=== PATIENT | female | born 1980 | race Hispanic/Latino ===

== ENCOUNTER 2021-10-27 08:39 | Observation (INO) | payer OTHER ==
--- OUTSIDE RECORDS SUMMARY | 2021-10-27 08:44 | XMS REPORT | Continuity of Care Document ---
:1980 Author Organization [facility] t Address [address] [place] [address] Care Team Providers Name Role Phone Jhon Mar Attending Clinician Unavailable Geovani Patel Attending Clinician Unavailable Jessica Attending Clinician Unavailable Marycarmen Saul Attending Clinician Unavailable Julianna Goss Admitting Clinician Unavailable Juan Manuel Admitting Clinician Unavailable Jessica Admitting Clinician Unavailable Payers Payer Name Policy Type Policy Number Effective Date Expiration Date S ource Problems Condition Condition Condition Status Onset Resolution Last Treating Co mments Source Name Details Category Date Date Treatment Clinician Date Overactive Overactive Problem Active [facility] bladder bladder [facility] Fibromyalg Fibromyalg Problem Active [facility] ia ia [facility] Therapeuti Therapeuti Problem Active [facility] c drug c drug [facility] - monitoring monitoring Me moria l [facility] Seizure Seizure Problem Active [facility] disorder disorder [facility] History of History of Problem Active [facility] Helicobact Helicobact Page kes - er pylori er pylori Darron lucy infection infection l [facility] Gastroesop Gastroesop Problem Active [facility] hageal hageal [facility] - reflux reflux Memoria disease, disease, l esophagiti esophagiti Ou tpati s presence s presence en t not not Clinics specified specified Irritable Irritable Problem Active [facility] bowel bowel [facility] - syndrome syndrome Memori a with with l constipati constipati Ou tpati on on ent Clinics Gastropare Gastropare Problem Active [facility] sis sis [facility] Hyperlipid Hyperlipid Problem Active [facility] emia emia [facility] Seizures Seizures Problem Active [facility] Chest Chest Problem Active [facility] pain, pain, [facility] - unspecifie unspecifie Me moria d type d type l [facility] IBS IBS Problem Active [facility] (irritable (irritable Page kes - bowel bowel Memoria syndrome) syndrome) [facility] PTSD PTSD Problem Active [facility] (post-trau (post-trau Page kes - matic matic Memoria stress stress l disorder) disorder) Out ati ent Clinics Bipolar Bipolar Problem Active [facility] disorder disorder [facility] COPD COPD Problem Active [facility] (chronic (chronic [facility] - obstructiv obstructiv Me moria e e l pulmonary pulmonary Outp ati disease) disease) ent Clinics Anxiety Anxiety Problem Active [facility] Insomnia, Insomnia, Problem Active [facility] unspecifie unspecifie Page kes - d type d type Memoria l [facility] Depression Depression Problem Active [facility] Swelling Swelling Problem Active [facility] Chronic Chronic Problem Active [facility] pain pain [facility] - syndrome syndrome Memori a l [facility] Depression Depression Problem Active [facility] with with [facility] - anxiety anxiety Memoria l [facility] Memory Memory Problem Active [facility] problem problem [facility] Abnormal Abnormal Problem Active [facility] t thyroid thyroid [facility] - blood test blood test Me moria l [facility] Hair loss Hair loss Problem [facility] Allergies, Adverse Reactions, Alerts Allergy Allergy Status Severity Reaction(s) Onset Inactive Treating Comm ents Source Name Type Date Date Clinician metoclop DA Active U [place] 2020-09 [facility] ramide 09-19 Corpus 00:00: Tory 00 [facility] tazobact DA Active SV DIFFICULTY 2020-09 [facility] am BREATHING 09-19:00: Tory[address] piperaci DA Active SV DIFFICULTY 2020-09 [facility] llin BREATHING 09-19 Corpus 00:00: Tory [facility] prometha DA Active U [facility] zine HCl - Clear 00:00: Balderas 00 [facility] prometha DA Active U INCREASED [facility] zine HCl NAUSEA 10-02 Clear 00:00: Balderas [facility] prometha DA Active U [facility] zine HCl 05-30 Corpus 00:00: [address] prometha DA Active U INCREASED [facility] zine HCl NAUSEA 05-30 Corpus 00:00: [address] Phenerga Adverse Active Info Not [facility] Reaction Available [facility] Medications Ordered Filled Start Stop Current Ordering Indication Dosage Frequency Signature Comments Components Source Medication Medication Date Date Medication? Clinician (SIG) Name Name Trazodone Trazodone Yes Gloria [address] HCl HCl [facility] Atorvastati Atorvastati Yes Gloria [address] [facility] n Calcium n Calcium Millender [facility] Fenofibrate Fenofibrate Yes Gloria [address] Millender with food [facility] Oxcarbazepi Oxcarbazepi Yes Gloria [address] [facility] [facility] ne ne Millender [facility] Procedures Procedure Date / Time Performed Performing Clinician [facility] ashia [id number] 2021-07-20 00:00:00 [email or web address] [facility] Encounters Start End Encounter Admission Attending Care Care Encounter Source Date/Time Date/Time Type Type Clinicians Facility Department ID 2020-10-05 Inpatient Kim Mar [facility] [id number] [facility] 12:30:00 [id number] [facility] 2020-10-02 Inpatient Isabela, Kim [facility] [id number] [facility] 10:00:00 [id number] [facility] 2021-10-03 2021-10-03 Emergency EM Jorge [facility] ER [id number] [facility] 13:14:00 18:45:00 Estefany [id number] [facility] 2021-10-03 2021-10-03 Emergency EM Jorge[facility] [id number] [facility] 13:14:00 13:14:00 Estefany 25 [facility] 2021-07-20 2021-07-22 Inpatient EM Hassanin[facility] TEL [id number] [facility] 11:40:00 16:00:00 Salsabeal [id number] [facility] 2021-07-20 2021-07-22 Inpatient EM Hassanin, [facility] TEL [id number] [facility] 11:40:00 16:00:00 Salsabeal 66 [facility] 2021-03-24 2021-03-24 Emergency EM Gk, [facility] ER [id number] [facility] 06:20:00 11:56:00 [place]os[place]den [id number] [facility] 2020-10-02 2020-10-02 Outpatient Matthew Marica [facility] LABO DO5 [id number] [facility] 20:38:00 20:38:00 [id number] [facility] 2018-12-15 2018-12-15 [facility] [id number] [facility] 21:22:00 21:22:00 [facility] Outpati [facility] Clinics 2018-12-15 2018-12-15 [facility] [id number] 10:00:00 10:00:00 [facility] Outpat[facility] Clinics 2018-11-18 2018-11-18 [facility] [id number] [address] 14:53:00 14:53:00 [facility] Medicine Medicine Outpati ent Clinics 2018-11-17 2018-11-17 [facility] [id number] 10:46:00 10:46:00 [facility] Medicine Medicine Outpati ent Clinics 2018-11-17 2018-11-17 [facility] [id number] 10:00:00 10:00:00 [facility] Medicine Outpati [facility] Clinics 2018-11-04 2018-11-04 Outpatient Holly Barrerat [id number] 16:26:00 16:26:00 [facility] ent [facility] 2018-11-02 2018-11-02 Outpatient Holly Barrerat [id number] 00:56:00 00:56:00 [facility] 2018-10-20 2018-10-20 Outpatient Holly Barrerat [id number] 09:15:00 09:15:00 [facility] Results Test Description Test Time Test Comments Results Result Comments Source LACTIC ACID 2021-10-03 18:21:00 Test Item Value Reference Range Interpretation Comme nts LACTIC ACID (test code = LACT) 1.2 MMOL/L 0.5-2.2 N UA RFLX MICROSCOPIC [id number] 17:09:00 Test Item Value Reference Range Interpretation Comments UA COLOR (test code = COLU) Yellow YELLOW UA APPEARANCE (test code = CLEAR CLEAR APPU) UA GLUCOSE DIPSTICK (test NORMAL mg/dL NEGATIVE code = DGLUU) UA BILIRUBIN DIPSTICK (test NEGATIVE NEGATIVE code = BILU) UA KETONE DIPSTICK (test NEGATIVE mg/dL NEGATIVE code = KETU) UA SPECIFIC GRAVITY (test > 1.050 1.001-1.035 H code = SGU) UA BLOOD DIPSTICK (test code NEGATIVE NEGATIVE = DARLENE) UA PH DIPSTICK (test code = 6.5 5.5-7.0 N POPEYE) UA PROTEIN DIPSTICK (test 20 mg/dL NEGATIVE code = PROU) UA UROBILINOGEN DIPSTICK NORMAL mg/dL NORMAL (test code = URO) UA NITRITE DIPSTICK (test NEGATIVE NEGATIVE code = OLENA) UA LEUKOCYTE ESTERASE NEGATIVE NEGATIVE DIPSTICK (test code = LEUU) UA COMMENT (test code = VOLUME 10-12 ML COMU) URINE SPECIMEN DESCRIPTION Clean Catch (test code = UASPEC) UA WBC (test code = WBCU) < 10 #/HPF 0-10 UA SQUAMOUS CELLS (test code > 100 #/LPF <100 A = SQU) UA CULTURE NEEDED? (test Criteria not met code = UACULT) Indication for culture: RiskForSepsis-no oth srcURINE SOURCE: Clean Catch LACTIC [id number] 17:06:00 Test Item Value Reference Range Interpretation Comments LACTIC ACID (test code = LACT) 3.3 MMOL/L 0.5-2.2 H UA [id number] 16:58:00 Test Item Value Reference Range Interpretation Comments UA RBC (test code = RBCU) #/hpf NONE SEEN Indication for culture: RiskForSepsis-no oth srcURINE SOURCE: Clean Catch DRUG OF ABUSE SCREEN [id number] 16:38:00 Test Item Value Reference Interpretation Comments Range UR COCAINE (test NEGATIVE NEGATIVE code = COCAU) UR MDMA (test code = POSITIVE NEGATIVE A If conf irmatory testing MDMAQLU) required, conta ct laboratory. UR CANNABINOIDS POSITIVE NEGATIVE A If confirmat ory testing (test code = CANU) required, contact laboratory. UR AMPHETAMINE (test NEGATIVE NEGATIVE code = AMPHU) UR BARBITURATE QUAL NEGATIVE NEGATIVE (test code = BARBQLU) UR BENZODIAZEPINE POSITIVE NEGATIVE A If confirm atory testing (test code = BENZU) required , contact laboratory. UR OPIATES QUAL NEGATIVE NEGATIVE (test code = OPIAQLU) UR PHENCYCLIDINE NEGATIVE NEGATIVE Urine Drug Abuse Screen (PCP) (test code = provides preliminary PHENCU) results thatmay be confirmed by naresh alcala methods (i.e., GC/MS) at [facility]. Results of scre en may not be usedin crimi nal justice, job performance or professionalcre dential review, or infa nt custody issues. Negativ e [place] Level ng/ml ------- ----- Cocaine 300 Methamp hetamine (Ecstacy) 500 Cannabinoids (THC) 50 Amphetamine 1000 Barbiturate s 200 Benzodia zepines 200 Opiat es 300 Ph encyclidine (PCP) 25 UR HCG [id number] 16:33:00 Test Item Value Reference Range Interpretation Comments UR HCG QUAL (test NEGATIVE NEGATIVE False nega tives may occur code = HCGQLU) when levels o f hCGare below 20 mIU/ml. When is still suspec janae, a new specimenshould be obtained after 48 hours and re-tested.If wa iting 48 hours is not me dically advisable,the t est result should be confi rmed using aquantitative h CG assay. Coronavirus 2019 nCoV [id number] 15:56:00 Test Item Value Reference Range Interpretation Comments Coronavirus 2019 Negative Negative ID NOW COVI D-19 assay nCoV Bedside (test performed on the ID NOW code = [id number]) Instrum ent devang rapid molecular in vi tro diagnostic test utilizing anisothermal nu cleic acid amplification t echnology intendedfor the qualitative det ection of nucleic acid fr om [id number] v iral RNA in direct nasal , nasopharyngeal orthroat swabs and nasal , nasopharyngeal or throat swabseluted in viral transport media from individuals who aresuspected of COVID-19 by their health care provider. Negat hilda results should be treated as presumptive and, ifinconsistent with clinical signs and symptoms or nec essaryfor patient managem ent, should be teste d with differentauthor ized or cleared molecul ar tests. Negative result s donot preclude SARS-C oV-2 infection and s hould not be used asthe s ole basis for patient man agement decisions. Negativeresults should be considered in t he context of a patient'sr ecent exposures, hist ory and presence of cli nical signs andsympto ms consistent with COVID-19.Result s are for the identificat ion of SARS-CoV-2 RNA. For Use Under an Emerge ncy Use Authorization ( EUA) Only Negative result s do not preclude SARS-C oV-2 infection andsh ould not be used as the sole basis for patient managementdecis ions. Negative result s must be combined with clinicalobserva tions, patient history , and epidemiological informatio n. - XR CHEST 1 [id number] 15:14:00 [facility] 1980 Sex: F Patient Name: CARO BLOUNT Unit No: [id number] EXAMS: CPT CODE: [id number] XR CHEST 1 V [id number] Reason: cough Location of dictation: H14 Portable chest one view. HISTORY: cough COMMENT: Compared to 07/20/2021. The heart and mediastinum appear normal. There is improved aeration of the lungs with no new consolidation, pneumothorax or effusion. Visualized soft tissues and skeletal structures are unremarkable. IMPRESSION: Resolved pneumonia with no acute findings in the chest. at 1514 Reported and signed by: Tish Garcia MD CC: Estefany Pastor; Kurt Zambrano MD; Estefany Patel MD Technologist: RT Jesus Trscrpt Dt/ (1514)t.[email or web address].[email or web address] Orig Print D/T: S: 10/03/2021 (1517) [facility] [place]: CARO BLOUNT [address] PHYS: Estefany Hanley MD [facility] [address] : 1980 AGE: 41 SEX: F LOC: JUNIOR PHONE #: [phone] EXAM DATE: 10/03/2021 STATUS: REG ER FAX #: RAD NO: DC Dt: PAGE 1 Signed Report- CT ABD PELVIS [id number] 15:12:00 [facility] 1980 Sex: F Patient Name: CARO BLOUNT Unit No: [id number] EXAMS: CPT CODE: [id number] CT ABD PELVIS W/CONT [id number] Reason: ABD PAIN CT abdomen and pelvis with contrast 10/03/2021 CLINICAL INDICATION: Abdominal pain COMPARISON: None available LOCATION: W1 TECHNIQUE: Helical CT axial imaging of the abdomen and pelvis was performed following the administration of intravenous contrast. Coronal and sagittal ref ormatted images were obtained. One or more of the following dose reduction techniques were used: Automated exposure control, adjustment of the mA and/or kV according to patient size, and/or utilization of iterative reconstruction technique. FINDINGS: Lowerthorax: Unremarkable. Hepatobiliary: Unremarkable. Gallbladder: Surgically absent.Spleen: Unremarkable. Pancreas: Unremarkable. Kidneys: Unremarkable. Adrenals: Unremarkable. Lymph nodes: Unremarkable. Vessels: Unremarkable. Peritoneum/retroperitoneum: Unremarkable. Pelvic organs/bladder: Absent uterus. Bowel: No focal wall thickeningor evidence for obstruction. Nondilated appendix. Bones/soft tissues: Unremarkable. IMPRESSION: No acute-appearing imaging abnormality. at 1512 Reported and signed by: Michael Mulligan MD CC: Estefany Pastor; Kurt Zambrano MD; Estefany Patel MD Technologist: Yahir GARRETT NM Trscrpt Dt/ (151)t.[email or web address] Orig Print D/T: S: 10/03/2021 (1515) CTDI: DLP: [facility] NAME: CARO BLOUNT [address] PHYS:Estefany Hanley MD [facility] [address] : 1980 AGE: 41 SEX: F LOC: MarinoSHORTY PHONE #: [phone] EXAM DATE: 10/03/2021 STATUS: REG ER FAX #: RAD NO: DC Dt: PAGE 1 Signed ReportBASI METABOLIC [id number] 14:26:00 Test Item Value Reference Range Interpretation Comments SODIUM (test code = 131 MMOL/L 133-145 L NA) POTASSIUM (test code = 4.8 MMOL/L 3.6-5.2 N K) CHLORIDE (test code = 96 MMOL/L 100-108 L CL) CARBON DIOXIDE (test 19 MMOL/L 22-32 L code = CO2) GLUCOSE (test code = 145 MG/DL 65-99 H Results of this assay GLU) method may be f alsely depressed orele vated if patient is t aking sulfasalazine. BLOOD UREA NITROGEN 12 MG/DL 6-20 N (test code = BUN) GLOMERULAR FILTRATION 64 58-135 N Report ing units: RATE (test code = GFR) mL/mi n/1.73m\\S\\2 (Modified MDRD Formula) CREATININE (test code 0.96 MG/DL 0.60-1.00 N = CREAT) CALCIUM (test code = 10.2 MG/DL 8.7-10.5 N CA) HEPATIC FUNCTION [id number] 14:26:00 Test Item Value Reference Range Interpretation Comments TOTAL PROTEIN (test 8.5 G/DL 6.4-8.2 H code = PROT) ALBUMIN (test code = 4.8 G/DL 3.4-5.0 N ALB) GLOBULIN (test code = 3.7 G/DL 1.5-3.8 N GLOB) ALBUMIN/GLOBULIN RATIO 1.3 1.1-2.2 N (test code = A/G) BILIRUBIN TOTAL (test 0.4 MG/DL 0.0-1.0 N code = BILT) BILIRUBIN DIRECT (test 0.1 MG/DL 0.0-0.3 N code = BILD) BILIRUBIN INDIRECT 0.3 MG/DL 0.0-0.7 N (test code = BILIND) SGOT/AST (test code = 36 Units/L 15-37 N Result s of this AST) assay method ma y be falsely depress ed orelevated if patient is taki ng sulfasalazine. SGPT/ALT (test code = 36 Units/L 30-65 N Result s of this ALT) assay method ma y be falsely depress ed orelevated if patient is taki ng sulfasalazine. ALKALINE PHOSPHATASE 130 Units/L 50-136 N TOTAL (test code = ALKP) [id number] 14:26:00 Test Item Value Reference Range Interpretation Comments LIPASE (test code = LIP) 66 Units/L 73-393 L CBC W/AUTO [id number] 14:25:00 Test Item Value Reference Range Interpretation Comments WHITE BLOOD CELL (test 22.18 x10 3/uL 4.80-10.80 H Res ults called to code = WBC) and read back Cristal TAM RN;1425, 10/03/21, D.LAB.CT. RED BLOOD CELL (test 4.41 x10 6/uL 4.2-5.4 N code = RBC) HEMOGLOBIN (test code = 13.0 G/DL 12.0-16.0 N HGB) HEMATOCRIT (test code = 37.6 % 37-47 N HCT) MEAN CELL VOLUME (test 85.3 FL 81-99 N code = MCV) MEAN CELL HGB (test 29.5 PG 27-31 N code = MCH) MEAN CELL HGB 34.6 G/DL 33-37 N CONCENTRATION (test code = MCHC) RED CELL DISTRIBUTION 14.5 % 11.5-14.5 N WIDTH (test code = RDW) PLATELET COUNT (test 312 x10 3/uL 150-450 N code = PLT) MEAN PLATELET VOLUME 9.9 FL 7.4-10.4 N (test code = MPV) NEUTROPHIL % (test code 87.4 % 42-86 H = NT%) IMMATURE GRANULOCYTE % 0.6 % 0.0-2.0 N (test code = IG%) LYMPHOCYTE % (test code 5.1 % 24-44 L = LY%) MONOCYTE % (test code = 6.4 % 0.0-4.0 H MO%) EOSINOPHIL % (test code 0.0 % 0.0-2.7 N = EO%) BASOPHIL % (test code = 0.5 % 0.0-0.5 N BA%) NUCLEATED RBC % (test 0.0 % 0.0-0.0 N code = NRBC%) NEUTROPHIL # (test code 19.40 x10 3/uL 1.8-7.7 H = NT#) IMMATURE GRANULOCYTE # 0.13 x10 3/uL 0.00-0.03 H (test code = IG#) LYMPHOCYTE # (test code 1.13 x10 3/uL 1.0-4.8 N = LY#) MONOCYTE # (test code = 1.41 x10 3/uL 0.0-0.8 H MO#) EOSINOPHIL # (test code 0.00 x10 3/uL 0.0-0.5 N = EO#) BASOPHIL # (test code = 0.11 x10 3/uL 0.0-0.2 N BA#) NUCLEATED RBC # (test 0.0 X10 3/uL 0.0-0.2 N code = NRBC#) AB MYCOPLASMA [id number] 23:07:00 Test Item Value Reference Range Interpretation Comments AB MYCOPLASMA IGM < 770 U/mL 0-769 (test code = Negative MYCOMAB) <770Clinically significant lucie unt of M. pneumoniae antibodynot det ected. Low Positive 770 - 950M. pneumonia e specific IgM presumptively d etected. Itis recommend ed that another sample be collected 1-2we eks later to assure reactivity. Positive >950Highly sign ificant amount of M. pn eumoniae specificIgM ant ibody detected.Perfor med At: [facility] [address] [id number] ra Nanci DAMICO Ph:[phone] COMPREHENSIVE METABOLIC [id number] 07:07:00 Test Item Value Reference Range Interpretation Comments SODIUM (test code = 138 MMOL/L 133-145 N NA) POTASSIUM (test code = 4.3 MMOL/L 3.6-5.2 N K) CHLORIDE (test code = 106 MMOL/L 100-108 N CL) CARBON DIOXIDE (test 24 MMOL/L 22-32 N code = CO2) GLUCOSE (test code = 92 MG/DL 65-99 N Results of this assay GLU) method may be f alsely depressed orele vated if patient is t aking sulfasalazine. BLOOD UREA NITROGEN 27 MG/DL 6-20 H (test code = BUN) GLOMERULAR FILTRATION 109 58-135 N Report ing units: RATE (test code = GFR) mL/mi n/1.73m\\S\\2 (Modified MDRD Formula) CREATININE (test code 0.61 MG/DL 0.60-1.00 N = CREAT) TOTAL PROTEIN (test 6.2 G/DL 6.4-8.2 L code = PROT) ALBUMIN (test code = 3.1 G/DL 3.4-5.0 L ALB) GLOBULIN (test code = 3.1 G/DL 1.5-3.8 N GLOB) ALBUMIN/GLOBULIN RATIO 1.0 1.1-2.2 L (test code = A/G) CALCIUM (test code = 8.6 MG/DL 8.7-10.5 L CA) BILIRUBIN TOTAL (test 0.1 MG/DL 0.0-1.0 N code = BILT) SGOT/AST (test code = 11 Units/L 15-37 L Result s of this assay AST) method may be f alsely depressed orele vated if patient is t aking sulfasalazine. SGPT/ALT (test code = 15 Units/L 30-65 L Result s of this assay ALT) method may be f alsely depressed orele vated if patient is t aking sulfasalazine. ALKALINE PHOSPHATASE 89 Units/L 50-136 N TOTAL (test code = ALKP) CBC W/AUTO [id number] 06:21:00 Test Item Value Reference Range Interpretation Comments WHITE BLOOD CELL (test code = 7.00 x10 3/uL 4.80-10.80 N WBC) RED BLOOD CELL (test code = 4.12 x10 6/uL 4.2-5.4 L RBC) HEMOGLOBIN (test code = HGB) 9.6 G/DL 12.0-16.0 L HEMATOCRIT (test code = HCT) 32.3 % 37-47 L MEAN CELL VOLUME (test code = 78.4 FL 81-99 L MCV) MEAN CELL HGB (test code = MCH) 23.3 PG 27-31 L MEAN CELL HGB CONCENTRATION 29.7 G/DL 33-37 L (test code = MCHC) RED CELL DISTRIBUTION WIDTH 18.5 % 11.5-14.5 H (test code = RDW) PLATELET COUNT (test code = 320 x10 3/uL 150-450 N PLT) MEAN PLATELET VOLUME (test code 10.0 FL 7.4-10.4 N = MPV) NEUTROPHIL % (test code = NT%) 74.7 % 42-86 N IMMATURE GRANULOCYTE % (test 0.3 % 0.0-2.0 N code = IG%) LYMPHOCYTE % (test code = LY%) 14.4 % 24-44 L MONOCYTE % (test code = MO%) 8.9 % 0.0-4.0 H EOSINOPHIL % (test code = EO%) 1.4 % 0.0-2.7 N BASOPHIL % (test code = BA%) 0.3 % 0.0-0.5 N NUCLEATED RBC % (test code = 0.0 % 0.0-0.0 N NRBC%) NEUTROPHIL # (test code = NT#) 5.23 x10 3/uL 1.8-7.7 N IMMATURE GRANULOCYTE # (test 0.02 x10 3/uL 0.00-0.03 N code = IG#) LYMPHOCYTE # (test code = LY#) 1.01 x10 3/uL 1.0-4.8 N MONOCYTE # (test code = MO#) 0.62 x10 3/uL 0.0-0.8 N EOSINOPHIL # (test code = EO#) 0.10 x10 3/uL 0.0-0.5 N BASOPHIL # (test code = BA#) 0.02 x10 3/uL 0.0-0.2 N NUCLEATED RBC # (test code = 0.0 X10 3/uL 0.0-0.2 N NRBC#) AG STREPTOCOCCUS [id number] 12:57:00 Test Item Value Reference Range Interpretation Comments AG STREPTOCOCCUS NEGATIVE NEGATIVE Presumptive negative PNEUMO (test code = for pneu mococcal STREPPNAG) pneumonia, sugg estingno current or rece nt pneumococcal in fection. Infection duet o Strep pneumonia canno t be ruled out since the antigenpresent in the sample may be b elow the detection limit ofthe test. LEGIONELLA ANTIGEN [id number] 12:57:00 Test Item Value Reference Range Interpretation Comments LEGIONELLA ANTIGEN NEGATIVE Negative Presumpti ve NEGATIVE for URINE (test code = L. pneumo nphila serogroup LEGAGUR) 1 antigenin the urine, suggesting no c urrent, or past infection. Infection due to Legionel la cannot be ruled out si nce otherserogroups and species may cau se disease, antige n may not bepresent in ea rly detection, and the level of antigen pres entin the urine may be be low the detection limit of the test. COMPREHENSIVE METABOLIC [id number] 07:06:00 Test Item Value Reference Range Interpretation Comments SODIUM (test code = 140 MMOL/L 133-145 N NA) POTASSIUM (test code = 3.5 MMOL/L 3.6-5.2 L K) CHLORIDE (test code = 105 MMOL/L 100-108 N CL) CARBON DIOXIDE (test 23 MMOL/L 22-32 N code = CO2) GLUCOSE (test code = 103 MG/DL 65-99 H Results of this assay GLU) method may be f alsely depressed orele vated if patient is t aking sulfasalazine. BLOOD UREA NITROGEN 12 MG/DL 6-20 N (test code = BUN) GLOMERULAR FILTRATION 96 58-135 N Report ing units: RATE (test code = GFR) mL/mi n/1.73m\\S\\2 (Modified MDRD Formula) CREATININE (test code 0.68 MG/DL 0.60-1.00 N = CREAT) TOTAL PROTEIN (test 7.0 G/DL 6.4-8.2 N code = PROT) ALBUMIN (test code = 3.2 G/DL 3.4-5.0 L ALB) GLOBULIN (test code = 3.8 G/DL 1.5-3.8 N GLOB) ALBUMIN/GLOBULIN RATIO 0.8 1.1-2.2 L (test code = A/G) CALCIUM (test code = 8.7 MG/DL 8.7-10.5 N CA) BILIRUBIN TOTAL (test 0.5 MG/DL 0.0-1.0 N code = BILT) SGOT/AST (test code = 88 Units/L 15-37 H Result s of this assay AST) method may be f alsely depressed orele vated if patient is t aking sulfasalazine. SGPT/ALT (test code = 43 Units/L 30-65 N Result s of this assay ALT) method may be f alsely depressed orele vated if patient is t aking sulfasalazine. ALKALINE PHOSPHATASE 87 Units/L 50-136 N TOTAL (test code = ALKP) CBC W/AUTO [id number] 07:05:00 Test Item Value Reference Range Interpretation Comments WHITE BLOOD CELL (test code = 21.60 x10 3/uL 4.80-10.80 H WBC) RED BLOOD CELL (test code = 3.61 x10 6/uL 4.2-5.4 L RBC) HEMOGLOBIN (test code = HGB) 10.7 G/DL 12.0-16.0 L HEMATOCRIT (test code = HCT) 31.7 % 37-47 L MEAN CELL VOLUME (test code = 87.8 FL 81-99 N MCV) MEAN CELL HGB (test code = 29.6 PG 27-31 N MCH) MEAN CELL HGB CONCENTRATION 33.8 G/DL 33-37 N (test code = MCHC) RED CELL DISTRIBUTION WIDTH 16.5 % 11.5-14.5 H (test code = RDW) PLATELET COUNT (test code = 258 x10 3/uL 150-450 N PLT) MEAN PLATELET VOLUME (test 10.0 FL 7.4-10.4 N code = MPV) NEUTROPHIL % (test code = % 42-86 N NT%) IMMATURE GRANULOCYTE % (test % 0.0-2.0 N code = IG%) LYMPHOCYTE % (test code = % 24-44 L LY%) MONOCYTE % (test code = MO%) % 0.0-4.0 H EOSINOPHIL % (test code = % 0.0-2.7 N EO%) BASOPHIL % (test code = BA%) % 0.0-0.5 N NUCLEATED RBC % (test code = % 0.0-0.0 N NRBC%) NEUTROPHIL # (test code = x10 3/uL 1.8-7.7 H NT#) IMMATURE GRANULOCYTE # (test x10 3/uL 0.00-0.03 H code = IG#) LYMPHOCYTE # (test code = x10 3/uL 1.0-4.8 N LY#) MONOCYTE # (test code = MO#) x10 3/uL 0.0-0.8 H EOSINOPHIL # (test code = x10 3/uL 0.0-0.5 N EO#) BASOPHIL # (test code = BA#) x10 3/uL 0.0-0.2 N NUCLEATED RBC # (test code = X10 3/uL 0.0-0.2 N NRBC#) MANUAL DIFF REQUIRED (test ADD MANUAL DIFF TECH REVIEW code = MDIFF) WBC [id number] 07:05:00 Test Item Value Reference Range Interpretation Comments RBC MORPHOLOGY COMMENT (test code = RBCM) PLATELET ESTIMATE Norm ADEQ MANUAL [place] TELET (test code = PLTEST) ESTIMAT E: 255,000 TOTAL CELLS COUNTED 100 #CELLS (test code = TCC) SEGMENTED NEUTROPHILS 76 % 42-86 N (test code = SEG) BAND NEUTROPHIL (test 8 % 0-11 N code = BAND) LYMPHOCYTE (test code 6 % 24-44 L = LYMPH) MONOCYTE (test code = 10 % 0-4 H MON) BAND ABSOLUTE (test 1.72 x10 3/uL 0.0-0.7 H code = BAND#) NEUTROPHIL ABSOLUTE 16.41 x10 3/uL 6.0-26.0 N (test code = NEUTR#) LYMPH ABSOLUTE (test 1.29 x10 3/uL 2.0-17.0 L code = LYMPH#) ATYPICAL LYMPH 0.00 x10 3/uL 0.0-0.0 N ABSOLUTE (test code = ALYMPH#) MONOCYTE ABSOLUTE 2.16 x10 3/uL 0.4-3.1 N (test code = MON#) BASOPHIL ABSOLUTE 0.00 x10 3/uL 0.0-0.2 N (test code = BASO#) EOSINOPHIL ABSOLUTE 0.00 x10 3/uL 0.0-0.5 N (test code = EOS#) METAMYELO ABSOLUTE 0.00 x10 3/uL 0.0-0.0 N (test code = META#) MYELOCYTE ABSOLUTE 0.00 x10 3/uL 0.0-0.0 N (test code = MYELO#) PROMYELOCYTE ABSOLUTE 0.00 x10 3/uL 0.0-0.0 N (test code = PROM#) BLASTS ABSOLUTE (test 0.00 x10 3/uL 0.0-0.0 N code = BLAST#) OTHER CELLS ABSOLUTE 0.00 x10 3/uL 0.0-0.0 N (test code = OCT#) DRUG OF ABUSE SCREEN [id number] 17:41:00 Test Item Value Reference Interpretation Comments Range UR COCAINE (test NEGATIVE NEGATIVE code = COCAU) UR MDMA (test code = POSITIVE NEGATIVE A If conf irmatory testing MDMAQLU) required, conta ct laboratory. UR CANNABINOIDS POSITIVE NEGATIVE A If confirmat ory testing (test code = CANU) required, contact laboratory. UR AMPHETAMINE (test NEGATIVE NEGATIVE code = AMPHU) UR BARBITURATE QUAL NEGATIVE NEGATIVE (test code = BARBQLU) UR BENZODIAZEPINE POSITIVE NEGATIVE A If confirm atory testing (test code = BENZU) required , contact laboratory. UR OPIATES QUAL NEGATIVE NEGATIVE (test code = OPIAQLU) UR PHENCYCLIDINE NEGATIVE NEGATIVE Urine Drug Abuse Screen (PCP) (test code = provides preliminary PHENCU) results thatmay be confirmed by naresh alcala methods (i.e., GC/MS) at [facility]. Results of scre en may not be usedin crimi nal justice, job performance or professionalcre dential review, or infa nt custody issues. Negativ e [place] Level ng/ml ------- ----- Cocaine 300 Methamp hetamine (Ecstacy) 500 Cannabinoids (THC) 50 Amphetamine 1000 Barbiturate s 200 Benzodia zepines 200 Opiat es 300 Ph encyclidine (PCP) 25 - CT ABD PELVIS [id number] 17:09:00 [facility] 1980 Sex: F Patient Name: CARO BLOUNT Unit No: [id number] EXAMS: CPT CODE: [id number] CT ABD PELVIS W/CONT 07388 Reason: Abd pain w/ leukocytosis HISTORY: Abd pain w/ leukocytosis EXAM: CT abdomen and pelvis with IV contrast. H49 TECHNIQUE:Contrast - IV contrast was given, no oral contrast was given Noncontrast phase - abdomen and pelvis Reconstructions - coronal and sagittal planes One or more of the following dose reduction techniques were used: Automated exposure control, adjustment of the mA and/or kV according to patient size, and/or utilization of iterative reconstruction technique. COMPARISON: CT abdomen and pelvis same day at 10:[address] abdomen and pelvis March 24, 2021. FINDINGS: Thoracic: Moderate patchy and confluent airspace opacities are present at both lung bases, which is new from prior exam in March, with the appearance of multifocal or viral pneumonia. No pleural or pericardial effusion.. Hepatobiliary: The liver is low in density consistent with mild hepatic steatosis. Patent hepatic vasculatu re. No focal lesion. Status post cholecystectomy. No biliary dilation. Pancreas:Normal. Spleen: Normal. Adrenals: Normal. Genitourinary: The kidneys are normal. There is no evidence of hydronephrosis of either kidney. There is no evidence of renal calculus or suspicious renal mass. Evaluation of the bladder is limited, but no obvious bladder abnormality is present. Post hysterectomy changes are present. Gastrointestinal: Unchanged subjective mild submucosal fatty deposition of the cecum, and ascending colon to the level of the hepatic flexure which is nonspecific but may be on the basis of acute or chronic colitis. No dilatation of the small bowel loops to suggest smallbowel obstruction. Normal appendix. Vascular: The aorta is grossly normal in appearance. Lymphatics: No enlarged lymph nodes by CT size criteria. Bones/Soft Tissues: No acute osseous findings. No ventral hernias. Peritoneum/Other: No extraluminal air. No extraluminal fluid. No intraperitoneal abscess collection. [facility] NAME: CARO BLOUNT [address] [facility] PHYS: [place] [address] : 1980 AGE: 41 SEX:F LOC: D.D309 1 PHONE #: [phone] EXAM DATE: 07/20/2021 STATUS: ADM IN FAX #: RAD NO: DC Dt: PAGE 1 Signed Report (CONTINUED) Patient Name: CARO BLOUNT Unit No: [id number] EXAMS: CPT CODE: [id number] CT ABD PELVIS W/CONT 19923 <Continued> Reason: Abd pain w/ leukocytosis IMPRESSION: 1. Unchanged subjective mild submucosal fatty deposition of the cecum andascending colon to the level of the hepatic flexure which is nonspecific but may be on the basis of acute or chronic colitis, versus underlying inflammatory bowel disease. No evidence of small bowel obstruction. Normal appendix. No pneumoperitoneum. No intra-abdominal abscess collection 2. Moderate patchy and confluent airspace opacities are present at both lung bases with the appearance of moderate multifocal or viral pneumonia. No pleural or pericardial effusion. 3. Hepatic steatosis. at 1709 Reported and signed by: Dacia Singleton MD CC: Farideh Lopez DO; Kurt Zambrano MD Technologist: Juan M Jackson CT Trscrpt Dt/ (188)[id number] Orig Print D/T: S: 07/20/2021 (2231) CTDI: DLP: [facility] NAME: CARO FUENTES [address] PHYS: BAMBI. - Farideh Lopez [facility] [address] : 1980 AGE: 41 SEX: F LOC: D.D309 1 PHONE #: [phone] EXAM DATE: 07/20/2021 STATUS: ADM IN FAX #: RAD NO: DC Dt: PAGE 2 Signed Report- US RETROPERITONEAL [id number] 15:00:00 [facility] 1980 Sex: F Patient Name: CARO BLOUNT Unit No: [id number] EXAMS: CPT CODE: [id number] US RETROPERITONEAL COM [id number] EXAM: - US RETROPERITONEAL COM HISTORY: history orurinary retention H49 TECHNIQUE: Grayscale B-mode and color Doppler sonographic images of the kidneys were performed. Dedicated grayscale B-mode and color Doppler pelvic imaging of the urinary bladder was also performed. COMPARISON: CT abdomen and pelvis 03/24/2021 FINDINGS: The right kidney measures 10.6 x 5.0 x 4.8cm. The left kidney measures 10.9 x 6.0 x 5.6 cm. There is no cystic or solid renal mass lesion visualized. No hydronephrosis. There is normal renal cortical thickness and echogenicity. The urinary bladder is underdistended with volume of 36 mL. No postvoid volume could be obtained as patient had recently voided and the urinary bladder was decompressed. Bilateral ureteral jets are seen. IMPRESSION: 1. Normal appearance of the kidneys bilaterally without hydronephrosis. Electroni chase Signed by Dacia Singleton MD on 07/20/2021 at 1500 Reported and signed by: Dacia Singleton MD CC: Farideh Lopez DO; Kurt Zambrano MD Technologist: US Adalid Trnscrbd D/ (1500) [id number] Orig Print D/T: S: 07/20/2021 (1804) Probe: [facility] NAME: CARO BLOUNT [address] [facility] PHYS: BAMBI.Noelle - Jessica,Farideh [facility] [address] : 1980 AGE: 41 SEX: F LOC: D.D309 1 PHONE #: [phone] EXAM DATE: 07/20/2021 STATUS: ADMIN FAX #: RAD NO: Page 1 Signed ReportLACTIC ACID 2021-07-20 13:36:00 Test Item Value Reference Range Interpretation Comments LACTIC ACID (test 0.9 MMOL/L 0.5-2.2 N HEMOLYZED, AND WE ARE code = LACT) UNSURE HOW IT W ILL AFFECT THE RESU LTS. [id number] 13:24:00 Test Item Value Reference Range Interpretation Comments TROPONIN-I (test 0.022 NG/ML 0.000-0.060 N The lower l imit for code = TROPI) Trop-I has bee n changed from <0.04. - The use of serial sampl ing and testing protoco l is a recommended pra ctice.- An elevated tro ponin level alone is often not sufficient fo r diagnosis of my ocardial infarction.Resu lts of this assay meth od may be falsely depress ed orelevated if p atient is taking high dos es of Biotin. COVID 19 INHOUSE [id number] 12:39:00 Test Item Value Reference Range Interpretation Comments COVID 19 NEGATIVE Negative " The Leha APRIL S Antigen CHON does INHOUSE AG not differentia te betweenSARS-CoV (test code = and SARS-CoV-2 " The Leah SARS [id number]) Antigen CHON emp loys immunofluoresce ncetechnology in a sandwich design that is used with Leah todetect nucleocapsid protein from SA RS-CoV and SARS-CoV-2.This test allows for the detection o f SARS-CoV xpqTASY-FlK-1. The test detects, but does not differentiate,b etween the two viruses. " Resu lts are for the identification of ZUDC-PsI-1kimms ocapsid protein antigen. Antige n is generallydetect able in upper respiratory spe cimens during the acutephase of i nfection. Positive results indicat e the presenceof viral antigens, but clinical correlation wit h patienthistory and other diagn ostic information is necessary to determine infection statu s. Positive results do not rule outbacterial infection or co -infection with other viruses. Theagent detected may not be the definite cause of disease. " Nega tive results should be treat ed as presumptive " This test has not been FDA cleared or appr lawrence; the testhas been authorized by FDA under an Emergency UseAu thorization (EUA) for use by labo ratories certified underthe CLIA t hat meet the requirements to perform moderate,high o r waived complexity test s. This test is authorized foru se at the Point of Care (POC), i.e ., in patient caresettings op erating under a CLIA Certificat e of Waiver,Certific ate of Compliance, or Certificate of Accreditation Use BINAX NOW test: YES- XR CHEST 1 [id number] 11:29:00 [facility] : 1980 Sex: F Patient Name: CARO BLOUNT Unit No: [id number] EXAMS: CPT CODE: [id number] XR CHEST 1 V 39182 Reason: vomitting,abnormal ct abd EXAM: - XR CHEST 1 V H49 HISTORY: Vomiting with abnormal CT COMPARISON: Same day CT FINDINGS: Frontal view of the chest is submitted. Normal cardiac size Moderate patchy bilateral pulmonary infiltrates are present, left greater than right; most consistent with edema and/or viral pneumonia changes. No effusion or pneumothorax. No acute osseous pathology. IMPRESSION Moderate bilateralpatchy infiltrates, left greater than right with the typical appearance for viral pneumonia changes, less likely atypical edema. Continued attention on follow-up. at 1129 Reported and signed by: Dacia Singleton MD CC: Estefany James DO; Kurt Zambrano MD Technologist: Debo Simpson RT; Griselda Short RT Trscrpt Dt/ (1129)[email or web address] Orig Print D/T: S: 07/20/2021 (1133) [facility] NAME: STEFANI BLOUNT [address] PHYS: Estefany Jacobs DO [facility] [address] : 1980 AGE: 41 SEX: F LOC: DLORENA PHONE #: [phone] EXAM DATE: 07/20/2021 STATUS: REG ER FAX #: RAD NO: DC Dt: PAGE 1 Signed ReportLACTIC [id number] 10:40:00 Test Item Value Reference Range Interpretation Comments LACTIC ACID (test code = LACT) 2.2 MMOL/L 0.5-2.2 N - CT ABD PELVIS W/O [id number] 10:39:00 [facility] : 1980 Sex: F Patient Name: CARO BLOUNT Unit No: [id number] EXAMS: CPT CODE: [id number] CT ABD PELVIS W/O CONT 96090 Reason: vomitting, leukocytosis HISTORY: vomiting, leukocytosis EXAM: CT abdomen and pelvis without IV contrast. H49 TECHNIQUE:Contrast - No IV contrast was given, no oral contrast was given Noncontrast phase - abdomen and pelvis Reconstructions - coronal and sagittal planes One or more of the following dose reduction techniques were used: Automated exposure control, adjustment of the mA and/or kV according to patient size, and/or utilization of iterative reconstruction technique. COMPARISON: CT abdomen and pelvis 03/24/2021. FINDINGS: Statements: Lack of intravenous contrast compromises evaluation of abdominopelvic organs and vasculature. Lack oforal contrast compromises evaluation of bowel. Thoracic: Included images of thelower chest demonstrate moderate patchy and confluent airspace opacities are present at both lung bases, which is new from prior exam in March, with the appearance of multifocal or viral pneumonia. No pleural or pericardial effusion.. Hepatobiliary: The liver is normal without focal lesion. Status post cholecystectomy. No biliary dilation. Pancreas: Normal. Spleen: Normal. Adrenals: Normal. Genitourinary: The kidneys are normal. There is no evidence of hydronephrosis of either kidney. There is no evidence of renal calculus. Evaluation of the bladder is limited, but no obvious bladder abnormality is present. Post hysterectomy changes are present. Gastrointestinal: Subjective mild submucosal fatty deposition of the cecum, and ascending colon to the level of the hepatic flexure which is nonspecific but may be on the basis of acute or chronic colitis. Nodilatation of the small bowel loops to suggest small bowel obstruction. Normal appendix. Vascular: The aorta is grossly normal in appearance. Lymphatics: No enlargedlymph nodes by CT size criteria. Bones/Soft Tissues: No acute osseous findings. No vent ral hernias. Peritoneum/Other: No extraluminal air. No extraluminal fluid. [facility] NAME: CARO BLOUNT [address] PHYS: Estefany Jacobs DO [facility] [place] [address] : 1980 AGE: 41 SEX: F LOC: JUNIOR PHONE #: [phone] EXAM DATE: 07/20/2021 STATUS: REG ER FAX #: RAD NO: DC Dt: PAGE 1 Signed Report (CONTINUED) Patient Name: CARO BLOUNT Unit No: [id number] EXAMS: CPT CODE: [id number] CT ABD PELVIS W/O CONT 79831 <Continued> Reason: vomitting, leukocytosis IMPRESSION: 1. Subjective mild submucosal fatty deposition of the cecum and ascending colon to the level of the hepatic flexure which is nonspecific but may be on the basis of acute or chronic colitis. No dilatation of the small bowel loops to suggest smallbowel obstruction. Normal appendix. No pneumoperitoneum. 2. Moderate patchy and confluent airspace opacities are present at both lung bases, which is new from prior exam in March, with the appearance of moderate multifocal or viral pneumonia. No pleural or pericardial effusion. Continued attention on follow-up. at 1039 Reported and signed by: Dacia Singleton MD CC:Estefany James DO; Kurt Zambrano MD Technologist: Juan M Jackson CT Trscrpt Dt/ (1039)[id number] Orig Print D/T: S: 07/20/2021 (1043) CTDI: DLP: [facility] NAME: CARO BLOUNT [address] PHYS: Estefany Jacobs DO [facility] [place] [address] : 1980 AGE: 41 SEX: FACCT NO: [id number] LOC: JUNIOR PHONE #: [phone] EXAM DATE: 07/20/2021 STATUS: REG ER FAX #: RAD NO: DC Dt: PAGE 2 Signed ReportCBC W/AUTO [id number] 10:30:00 Test Item Value Reference Range Interpretation Comments WHITE BLOOD CELL (test 27.52 x10 3/uL 4.80-10.80 H Res ults called to code = WBC) and read back julianna adamson BUCK LE;0958, 07/20/21, [id number]. RED BLOOD CELL (test 4.16 x10 6/uL 4.2-5.4 L code = RBC) HEMOGLOBIN (test code 12.6 G/DL 12.0-16.0 N = HGB) HEMATOCRIT (test code 36.3 % 37-47 L = HCT) MEAN CELL VOLUME (test 87.3 FL 81-99 N code = MCV) MEAN CELL HGB (test 30.3 PG 27-31 N code = MCH) MEAN CELL HGB 34.7 G/DL 33-37 N CONCENTRATION (test code = MCHC) RED CELL DISTRIBUTION 16.0 % 11.5-14.5 H WIDTH (test code = RDW) PLATELET COUNT (test 319 x10 3/uL 150-450 N code = PLT) MEAN PLATELET VOLUME 9.9 FL 7.4-10.4 N (test code = MPV) NEUTROPHIL % (test % 42-86 H code = NT%) IMMATURE GRANULOCYTE % % 0.0-2.0 N (test code = IG%) LYMPHOCYTE % (test % 24-44 L code = LY%) MONOCYTE % (test code % 0.0-4.0 H = MO%) EOSINOPHIL % (test % 0.0-2.7 N code = EO%) BASOPHIL % (test code % 0.0-0.5 N = BA%) NUCLEATED RBC % (test % 0.0-0.0 N code = NRBC%) NEUTROPHIL # (test x10 3/uL 1.8-7.7 H code = NT#) IMMATURE GRANULOCYTE # x10 3/uL 0.00-0.03 H (test code = IG#) LYMPHOCYTE # (test x10 3/uL 1.0-4.8 N code = LY#) MONOCYTE # (test code x10 3/uL 0.0-0.8 H = MO#) EOSINOPHIL # (test x10 3/uL 0.0-0.5 N code = EO#) BASOPHIL # (test code x10 3/uL 0.0-0.2 N = BA#) NUCLEATED RBC # (test X10 3/uL 0.0-0.2 N code = NRBC#) MANUAL DIFF REQUIRED ADD MANUAL DIFF TECH REVIEW (test code = MDIFF) WBC [id number] 10:30:00 Test Item Value Reference Range Interpretation Comments RBC MORPHOLOGY COMMENT (test Normal code = RBCM) PLATELET ESTIMATE (test code = Norm ADEQ PLTEST) TOTAL CELLS COUNTED (test code 100 #CELLS = TCC) SEGMENTED NEUTROPHILS (test 87 % 42-86 H code = SEG) LYMPHOCYTE (test code = LYMPH) 5 % 24-44 L MONOCYTE (test code = MON) 8 % 0-4 H BAND ABSOLUTE (test code = 0.00 x10 3/uL 0.0-0.7 N BAND#) NEUTROPHIL ABSOLUTE (test code 23.94 x10 3/uL 6.0-26.0 N = NEUTR#) LYMPH ABSOLUTE (test code = 1.37 x10 3/uL 2.0-17.0 L LYMPH#) ATYPICAL LYMPH ABSOLUTE (test 0.00 x10 3/uL 0.0-0.0 N code = ALYMPH#) MONOCYTE ABSOLUTE (test code = 2.20 x10 3/uL 0.4-3.1 N MON#) BASOPHIL ABSOLUTE (test code = 0.00 x10 3/uL 0.0-0.2 N BASO#) EOSINOPHIL ABSOLUTE (test code 0.00 x10 3/uL 0.0-0.5 N = EOS#) METAMYELO ABSOLUTE (test code 0.00 x10 3/uL 0.0-0.0 N = META#) MYELOCYTE ABSOLUTE (test code 0.00 x10 3/uL 0.0-0.0 N = MYELO#) PROMYELOCYTE ABSOLUTE (test 0.00 x10 3/uL 0.0-0.0 N code = PROM#) BLASTS ABSOLUTE (test code = 0.00 x10 3/uL 0.0-0.0 N BLAST#) OTHER CELLS ABSOLUTE (test 0.00 x10 3/uL 0.0-0.0 N code = OCT#) PLATELET MORPHOLOGY (test code Normal Normal = PLTMORPH) UA RFLX [id number] 10:28:00 Test Item Value Reference Range Interpretation Comments UA COLOR (test code = COLU) Yellow YELLOW UA APPEARANCE (test code = CLEAR CLEAR APPU) UA GLUCOSE DIPSTICK (test NORMAL mg/dL NEGATIVE code = DGLUU) UA BILIRUBIN DIPSTICK (test NEGATIVE NEGATIVE code = BILU) UA KETONE DIPSTICK (test code 20 mg/dL NEGATIVE A = KETU) UA SPECIFIC GRAVITY (test 1.031 1.001-1.035 N code = SGU) UA BLOOD DIPSTICK (test code NEGATIVE NEGATIVE = DARLENE) UA PH DIPSTICK (test code = 6.0 5.5-7.0 N POPEYE) UA PROTEIN DIPSTICK (test 50 mg/dL NEGATIVE A code = PROU) UA UROBILINOGEN DIPSTICK NORMAL mg/dL NORMAL (test code = URO) UA NITRITE DIPSTICK (test NEGATIVE NEGATIVE code = OLENA) UA LEUKOCYTE ESTERASE NEGATIVE NEGATIVE DIPSTICK (test code = LEUU) UA COMMENT (test code = COMU) VOLUME 10-12 ML URINE SPECIMEN DESCRIPTION Catheterized (test code = UASPEC) UA [id number] 10:28:00 Test Item Value Reference Range Interpretation Comments UA WBC (test code = WBCU) < 10 #/HPF 0-10 UA RBC (test code = RBCU) 0-2 #/HPF NONE SEEN UA SQUAMOUS CELLS (test code 0 - 20 #/LPF <100 = SQU) UA CULTURE NEEDED? (test Criteria not met code = UACULT) UA HYALINE CAST (test code = 6-10 #/lpf HYALU) UA MUCUS (test code = MUCU) RARE #/lpf NONE SEEN UR HCG [id number] 10:27:00 Test Item Value Reference Range Interpretation Comments UR HCG QUAL (test NEGATIVE NEGATIVE False nega tives may occur code = HCGQLU) when levels o f hCGare below 20 mIU/ml. When is still suspec janae, a new specimenshould be obtained after 48 hours and re-tested.If wa iting 48 hours is not me dically advisable,the t est result should be confi rmed using aquantitative h CG assay. COMPREHENSIVE METABOLIC [id number] 10:12:00 Test Item Value Reference Range Interpretation Comments SODIUM (test code = 136 MMOL/L 133-145 N NA) POTASSIUM (test code = 3.5 MMOL/L 3.6-5.2 L K) CHLORIDE (test code = 99 MMOL/L 100-108 L CL) CARBON DIOXIDE (test 23 MMOL/L 22-32 N code = CO2) GLUCOSE (test code = 96 MG/DL 65-99 N Results of this GLU) assay method vira y be falsely depress ed orelevated if patient is taki ng sulfasalazine. BLOOD UREA NITROGEN 23 MG/DL 6-20 H (test code = BUN) GLOMERULAR FILTRATION 65 58-135 N Report ing units: RATE (test code = GFR) mL/mi n/1.73m\\S\\2 (Modified MDRD Formula) CREATININE (test code 0.95 MG/DL 0.60-1.00 N = CREAT) TOTAL PROTEIN (test 8.0 G/DL 6.4-8.2 N code = PROT) ALBUMIN (test code = 4.0 G/DL 3.4-5.0 N ALB) GLOBULIN (test code = 4.0 G/DL 1.5-3.8 H GLOB) ALBUMIN/GLOBULIN RATIO 1.0 1.1-2.2 L (test code = A/G) CALCIUM (test code = 9.0 MG/DL 8.7-10.5 N CA) BILIRUBIN TOTAL (test 0.8 MG/DL 0.0-1.0 N code = BILT) SGOT/AST (test code = 160 Units/L 15-37 H Result s of this AST) assay method vira y be falsely depress ed orelevated if patient is taki ng sulfasalazine. SGPT/ALT (test code = 47 Units/L 30-65 N Result s of this ALT) assay method vira y be falsely depress ed orelevated if patient is taki ng sulfasalazine. ALKALINE PHOSPHATASE 107 Units/L 50-136 N TOTAL (test code = ALKP) [id number] 10:12:00 Test Item Value Reference Range Interpretation Comments LIPASE (test code = LIP) 59 Units/L 73-393 L - CT ABD PELVIS [id number] 11:34:00 [facility] 1980 Sex: F Patient Name: CARO BLOUNT Unit No: [id number] EXAMS: CPT CODE: [id number] CT ABD PELVIS W/CONT 76661 Reason: ABDOMINAL PAIN, NAUSEA AND VOMIT EXAMINATION: - CT ABD PELVIS W/CONT. LOCATION: H39. HISTORY: ABDOMINAL PAIN, NAUSEA AND VOMITING. COMPARISON: None. TECHNIQUE: CT abdomen and pelvis was performed with the use of IV contrast. Sagittal and coronal reconstructed images were available for review. This exam was performed according to our departmental dose-optimization program, which includes automated exposure control, adjustment of the mA and/or kV according to patient size, and/or use of iterative reconstruction technique. FINDINGS: Lower chest: Patchy ground glass opacities are seen in the lingula and left lower lobe. Heart size is normal. Abdomen: There is focal fatty infiltration adjacent to the falciform ligament. There has been prior cholecystectomy. The pancreas, spleen, bilateral adrenal glands, and bilateral kidneys appear within normal limits. There is no evidence of bowel obstruction. The appendix appears normal. No pneumoperitoneum or ascites is identified. There is no mesenteric or retroperitoneal adenopathy. Pelvis: The urinary bladder appears normal. No inguinal adenopathy is identified. Bones/soft tissues: No acute osseous abnormality is identified. No aggressive lytic or blastic lesions are seen. Sacral electronic lead enters through the left S3 foramen with the tip in the left hemipelvis. IMPRESSION: Patchy groundglass opacities in the lingula and left lower lobe consistent with pneumonia. at 1134 Reported and signed by: Tavo Hernandez MD [facility] NAME: CARO BLOUNT [address] PHYS: [place] [address] : 1980 AGE:41 SEX: F LOC: D.SHORTY PHONE #: [phone] EXAM DATE: 03/24/2021 STATUS: REG ER FAX #: RAD NO: DC Dt: PAGE 1 Signed Report (CONTINUED) Patient Name: CARO BLOUNT Unit No: [id number] EXAMS: CPT CODE: [id number] CT ABD PELVIS W/CONT 56003 <Continued> Reason: ABDOMINAL PAIN, NAUSEA AND VOMIT CC: Jesu Saul DO; Kurt Zambrano MD Technologist: Juan M Jackson CT Trscrpt Dt/ ([id number] Orig Print D/T: S: 03/24/2021 (1137) CTDI: [place]LP: [facility] NAME: CARO BLOUNT[address] PHYS: [place] [id number] : 1980 AGE: 41 SEX: F LOC: D.SHORTY PHONE #: [phone] EXAM DATE: 03/24/2021 STATUS: REG ER FAX #: RAD NO: DCDt: PAGE 2 Signed ReportDRUG OF ABUSE SCREEN [id number] 10:45:00 Test Item Value Reference Interpretation Comments Range UR COCAINE (test NEGATIVE NEGATIVE code = COCAU) UR MDMA (test code = POSITIVE NEGATIVE A If conf irmatory testing MDMAQLU) required, conta ct laboratory. UR CANNABINOIDS POSITIVE NEGATIVE A If confirmat ory testing (test code = CANU) required, contact laboratory. UR AMPHETAMINE (test NEGATIVE NEGATIVE code = AMPHU) UR BARBITURATE QUAL NEGATIVE NEGATIVE (test code = BARBQLU) UR BENZODIAZEPINE POSITIVE NEGATIVE A If confirm atory testing (test code = BENZU) required , contact laboratory. UR OPIATES QUAL POSITIVE NEGATIVE A If confirmat ory testing (test code = required, conta ct OPIAQLU) laboratory. UR PHENCYCLIDINE NEGATIVE NEGATIVE Urine Drug Abuse Screen (PCP) (test code = provides preliminary PHENCU) results thatmay be confirmed by naresh alcala methods (i.e., GC/MS) at [facility]. Results of scre en may not be usedin crimi nal justice, job performance or professionalcre dential review, or infa nt custody issues. Negativ e [place] Level ng/ml ------- ----- Cocaine 300 Methamp hetamine (Ecstacy) 500 Cannabinoids (THC) 50 Amphetamine 1000 Barbiturate s 200 Benzodia zepines 200 Opiat es 300 Ph encyclidine (PCP) 25 UA RFLX MICROSCOPIC [id number] 08:36:00 Test Item Value Reference Range Interpretation Comments UA COLOR (test code = COLU) Light-Yellow YELLOW UA APPEARANCE (test code = CLEAR CLEAR APPU) UA GLUCOSE DIPSTICK (test NORMAL mg/dL NEGATIVE code = DGLUU) UA BILIRUBIN DIPSTICK (test NEGATIVE NEGATIVE code = BILU) UA KETONE DIPSTICK (test NEGATIVE mg/dL NEGATIVE code = KETU) UA SPECIFIC GRAVITY (test 1.022 1.001-1.035 N code = SGU) UA BLOOD DIPSTICK (test code NEGATIVE NEGATIVE = DARLENE) UA PH DIPSTICK (test code = 6.5 5.5-7.0 N POPEYE) UA PROTEIN DIPSTICK (test 10 mg/dL NEGATIVE code = PROU) UA UROBILINOGEN DIPSTICK NORMAL mg/dL NORMAL (test code = URO) UA NITRITE DIPSTICK (test NEGATIVE NEGATIVE code = OLENA) UA LEUKOCYTE ESTERASE NEGATIVE NEGATIVE DIPSTICK (test code = LEUU) UA COMMENT (test code = VOLUME 10-12 ML COMU) URINE SPECIMEN DESCRIPTION Clean Catch (test code = UASPEC) UA WBC (test code = WBCU) < 10 #/HPF 0-10 UA SQUAMOUS CELLS (test code 0 - 20 #/LPF <100 = SQU) UA CULTURE NEEDED? (test Criteria not met code = UACULT) Indication for culture: Flank PainURINE SOURCE: Clean CatchUA MICROSCOPIC 2021-03-24 08:36:00 Test Item Value Reference Range Interpretation Comments UA RBC (test code = RBCU) 0-2 #/HPF NONE SEEN UA MUCUS (test code = MUCU) RARE #/lpf NONE SEEN Indication for culture: Flank PainURINE SOURCE: Clean CatchUA RFLX MICROSCOPIC [id number] 08:35:00 Test Item Value Reference Range Interpretation Comments UA COLOR (test code = COLU) Light-Yellow YELLOW UA APPEARANCE (test code = CLEAR CLEAR APPU) UA GLUCOSE DIPSTICK (test NORMAL mg/dL NEGATIVE code = DGLUU) UA BILIRUBIN DIPSTICK (test NEGATIVE NEGATIVE code = BILU) UA KETONE DIPSTICK (test code NEGATIVE mg/dL NEGATIVE = KETU) UA SPECIFIC GRAVITY (test 1.022 1.001-1.035 N code = SGU) UA BLOOD DIPSTICK (test code NEGATIVE NEGATIVE = DARLENE) UA PH DIPSTICK (test code = 6.5 5.5-7.0 N POPEYE) UA PROTEIN DIPSTICK (test 10 mg/dL NEGATIVE code = PROU) UA UROBILINOGEN DIPSTICK NORMAL mg/dL NORMAL (test code = URO) UA NITRITE DIPSTICK (test NEGATIVE NEGATIVE code = OLENA) UA LEUKOCYTE ESTERASE NEGATIVE NEGATIVE DIPSTICK (test code = LEUU) UA COMMENT (test code = COMU) VOLUME 10-12 ML URINE SPECIMEN DESCRIPTION Clean Catch (test code = UASPEC) UA WBC (test code = WBCU) #/hpf <10 UA SQUAMOUS CELLS (test code #/lpf <100 = SQU) UA CULTURE NEEDED? (test code = UACULT) Indication for culture: Flank PainURINE SOURCE: Clean CatchUA MICROSCOPIC 2021-03-24 08:35:00 Test Item Value Reference Range Interpretation Comments UA RBC (test code = RBCU) #/hpf NONE SEEN Indication for culture: Flank PainURINE SOURCE: Clean CatchUA RFLX MICROSCOPIC [id number] 08:35:00 Test Item Value Reference Range Interpretation Comments UA COLOR (test code = COLU) Light-Yellow YELLOW UA APPEARANCE (test code = CLEAR CLEAR APPU) UA GLUCOSE DIPSTICK (test NORMAL mg/dL NEGATIVE code = DGLUU) UA BILIRUBIN DIPSTICK (test NEGATIVE NEGATIVE code = BILU) UA KETONE DIPSTICK (test code NEGATIVE mg/dL NEGATIVE = KETU) UA SPECIFIC GRAVITY (test 1.022 1.001-1.035 N code = SGU) UA BLOOD DIPSTICK (test code NEGATIVE NEGATIVE = DARLENE) UA PH DIPSTICK (test code = 6.5 5.5-7.0 N POPEYE) UA PROTEIN DIPSTICK (test 10 mg/dL NEGATIVE code = PROU) UA UROBILINOGEN DIPSTICK NORMAL mg/dL NORMAL (test code = URO) UA NITRITE DIPSTICK (test NEGATIVE NEGATIVE code = OLENA) UA LEUKOCYTE ESTERASE NEGATIVE NEGATIVE DIPSTICK (test code = LEUU) UA COMMENT (test code = COMU) VOLUME 10-12 ML URINE SPECIMEN DESCRIPTION Clean Catch (test code = UASPEC) UA WBC (test code = WBCU) #/hpf <10 UA SQUAMOUS CELLS (test code #/lpf <100 = SQU) UA CULTURE NEEDED? (test code = UACULT) Indication for culture: Flank PainURINE SOURCE: Clean CatchUA MICROSCOPIC 2021-03-24 08:35:00 Test Item Value Reference Range Interpretation Comments UA RBC (test code = RBCU) #/hpf NONE SEEN Indication for culture: Flank PainURINE SOURCE: Clean CatchCOMPREHENSIVE METABOLIC [id number] 07:20:00 Test Item Value Reference Range Interpretation Comments SODIUM (test code = 138 MMOL/L 133-145 N NA) POTASSIUM (test code = 4.3 MMOL/L 3.6-5.2 N K) CHLORIDE (test code = 103 MMOL/L 100-108 N CL) CARBON DIOXIDE (test 23 MMOL/L 22-32 N code = CO2) GLUCOSE (test code = 147 MG/DL 65-99 H Results of this GLU) assay method ma y be falsely depress ed orelevated if patient is taki ng sulfasalazine. BLOOD UREA NITROGEN 23 MG/DL 6-20 H (test code = BUN) GLOMERULAR FILTRATION 59 58-135 N Report ing units: RATE (test code = GFR) mL/mi n/1.73m\\S\\2 (Modified MDRD Formula) CREATININE (test code 1.04 MG/DL 0.60-1.00 H = CREAT) TOTAL PROTEIN (test 8.1 G/DL 6.4-8.2 N code = PROT) ALBUMIN (test code = 4.2 G/DL 3.4-5.0 N ALB) GLOBULIN (test code = 3.9 G/DL 1.5-3.8 H GLOB) ALBUMIN/GLOBULIN RATIO 1.1 1.1-2.2 N (test code = A/G) CALCIUM (test code = 9.2 MG/DL 8.7-10.5 N CA) BILIRUBIN TOTAL (test 0.4 MG/DL 0.0-1.0 N code = BILT) SGOT/AST (test code = 43 Units/L 15-37 H Result s of this AST) assay method ma y be falsely depress ed orelevated if patient is taki ng sulfasalazine. SGPT/ALT (test code = 37 Units/L 30-65 N Result s of this ALT) assay method ma y be falsely depress ed orelevated if patient is taki ng sulfasalazine. ALKALINE PHOSPHATASE 114 Units/L 50-136 N TOTAL (test code = ALKP) [id number] 07:20:00 Test Item Value Reference Range Interpretation Comments LIPASE (test code = LIP) 142 Units/L 73-393 N HCG SERUM [id number] 07:07:00 Test Item Value Reference Range Interpretation Comments HCG SERUM QUAL NEGATIVE NEGATIVE False negativ es may occur (test code = when levels of hCGare below HCGQL) 10 mIU/ml. When is still suspec janae, a new specimenshould be obtained after 48 hours and re-tested.If wa iting 48 hours is not me dically advisable,the t est result should be confi rmed using aquantitative h CG assay. CBC W/AUTO [id number] 06:58:00 Test Item Value Reference Range Interpretation Comments WHITE BLOOD CELL (test code = 10.10 x10 3/uL 4.80-10.80 N WBC) RED BLOOD CELL (test code = 3.67 x10 6/uL 4.2-5.4 L RBC) HEMOGLOBIN (test code = HGB) 11.2 G/DL 12.0-16.0 L HEMATOCRIT (test code = HCT) 32.8 % 37-47 L MEAN CELL VOLUME (test code = 89.4 FL 81-99 N MCV) MEAN CELL HGB (test code = 30.5 PG 27-31 N MCH) MEAN CELL HGB CONCENTRATION 34.1 G/DL 33-37 N (test code = MCHC) RED CELL DISTRIBUTION WIDTH 15.9 % 11.5-14.5 H (test code = RDW) PLATELET COUNT (test code = 353 x10 3/uL 150-450 N PLT) MEAN PLATELET VOLUME (test 8.9 FL 7.4-10.4 N code = MPV) NEUTROPHIL % (test code = NT%) 88.9 % 42-86 H IMMATURE GRANULOCYTE % (test 0.3 % 0.0-2.0 N code = IG%) LYMPHOCYTE % (test code = LY%) 6.0 % 24-44 L MONOCYTE % (test code = MO%) 4.4 % 0.0-4.0 H EOSINOPHIL % (test code = EO%) 0.0 % 0.0-2.7 N BASOPHIL % (test code = BA%) 0.4 % 0.0-0.5 N NUCLEATED RBC % (test code = 0.0 % 0.0-0.0 N NRBC%) NEUTROPHIL # (test code = NT#) 8.98 x10 3/uL 1.8-7.7 H IMMATURE GRANULOCYTE # (test 0.03 x10 3/uL 0.00-0.03 N code = IG#) LYMPHOCYTE # (test code = LY#) 0.61 x10 3/uL 1.0-4.8 L MONOCYTE # (test code = MO#) 0.44 x10 3/uL 0.0-0.8 N EOSINOPHIL # (test code = EO#) 0.00 x10 3/uL 0.0-0.5 N BASOPHIL # (test code = BA#) 0.04 x10 3/uL 0.0-0.2 N NUCLEATED RBC # (test code = 0.0 X10 3/uL 0.0-0.2 N NRBC#) [id number] 15:13:00 Test Item Value Reference Range Interpretation Comments SURGICAL (test code = SURG) RUN DATE: 10/08/20 Ivan Spears BRENNON LIVE PAGE 1 RUN TIME: 1513 Specimen Inquiry RUN USER: INTERFACE PATIENT: CARO BLOUNT LOC: [facility]AnaisCORI U #: [id number] AGE/SX: 40/F ROOM: RE10/05/20REG DR: Kim Mar MD : 82 BED: DIS: STATUS: [facility] [place] TLOC: SPEC #: [id number] RECD: 10/05/20 STATUS: LUISAEd CANDY #: [id number] OLGA: 10/05/20-[address] [facility] [address]: Kim Mar MD ENTERED: 10/05/206818 SP TYPE: SURGICAL OTHR DR: Lily Linn MD ORDERED: PATHGM4, PATHGM5 CODES: [id number] - BOTH FALLOPIAN [id number] - UTERUS, NOS [id number] - VAGINA, NOS COPIES TO: Lily Linn MD [address] [facility] [address] [place], [place] [id number] Kim Mar MD [phone] [place], [place] [phone] HISTOLOGY: TISSUE ID BLK PCS MIRIAM LEV PROCEDURE DISPOSITION ____ ___ ___ ___ VAGINA, NOS A 1 CERVIX, NOS B 1-6 UTERUS, NOS B2 BOTH FALLOPIAN B3 ICD CODES: 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 VAGINA, NOS - CYST WALL B. CERVIX, NOS B2. UTERUS, NOS B3. BOTH FALLOPIAN TUBES CLINICAL HISTORY CHRONIC PELVIC PAIN MENORRHAGIA CONTINUED ON NEXT PAGE RUN DATE: 10/08/20 [facility] LAB LIVE PAGE 2 RUN TIME: 1513 Specimen Inquiry RUN USER: INTERFACE SPEC #: [id number] PATIENT: MINECARO ANGIE #[id number] (Continued) FINAL DIAGNOSIS A. CYST WALL, EXCISION: - BENIGN FOLLICLE CYST. B. UTERUS, CERVIX, AND BILATERAL FALLOPIAN TUBES, HYSTERECTOMY AND BILATERAL SALPINGECTOMY: - CERVIX, IMMATURE SQUAMOUS METAPLASIA AND CHRONIC CERVICITIS. - ENDOMETRIUM, WEAKLY PROLIFERATIVE PHASE. - MYOMETRIUM, LEIOMYOMA. - BILATERAL FALLOPIAN TUBES, NO DIAGNOSTIC ALTERATION. GROSS DESCRIPTION Part A. The specimen is received in a formalin-filled container labeled with the patient's name and source "cyst wall" and is an unoriented and irregular 2.5 x 1.5 x 0.7 cm piece of pink-toney fibromembranous tissue. The specimen is grossly consistent with a ruptured cystic structure. The inner cedillo are smooth with no discrete papillary excrescences noted. The outer cedillo are inked blue and the specimen is serially sectioned. Patient Representative sections are submitted - 1. Part B. The specimen is received in a formalin-filled container labeled with the patient's name and source "cervix, uterus, and bilateral fallopian tubes" and is a 117.0 gram uterus with attached cervix and detached bilateral fallopian tubes. The uterus is 5.0 cm from superior to inferior, 4.5 cm from cornu to cornu, and 4.5 cm from anterior to posterior. The serosal surface is pink-toney, smooth and glistening. The attached cervix is 3.5 cm in length with an average diameter of 3.0 cm. The ectocervix is pink-toney, smooth and glistening with a patent os 0.7 cm in diameter. The specimen is bivalved to reveal a pink-toney, smooth and glistening endocervix and a 3.0 x 2.0 cm endometrial cavity. The endometrium is pink-toney, smooth and glistening and is 0.1-0.2 cm thick. The specimen is serially sectioned to reveal a pink-toney and trabeculated myometrium, 2.0 cm thick. Noted within the anterior aspect is a single toney-white nodule 0.8 cm in greatest dimension. The nodule is sectioned to reveal a toney-white whorled cut surface with no discrete areas of hemorrhage or necrosis noted. The fallopian tubes are received detached and unoriented and are inked blue and green, respectively. The blue-inked fallopian tube is fimbriated, 3.0 cm in length with an average diameter of 0.8 cm. The green-inked fallopian tube is fimbriated, 3.5 cm in length with an average diameter of 0.7 cm. Patient Representative sections are submitted as follows: B1 - bilateral endo/ectocervix. B2 - full thickness anterior endometrium. B3 - full thickness posterior endometrium. B4 - myometrial fibroid from anterior aspect. B5 - blue-inked fallopian tube. CONTINUED ON NEXT PAGE RUN DATE: 10/08/20 [facility] LAB LIVE PAGE 3 RUN TIME: 1513 Specimen Inquiry RUN USER: INTERFACE SPEC #: [id number] PATIENT: CARO BLOUNT #[id number] (Continued) GROSS DESCRIPTION (Continued) B6 - green-inked fallopian tube. JOB#: [id number] MICROSCOPIC DESCRIPTION A. Sections of the cyst wall show a benign follicle cyst. No malignancy is identified. B. Sections of the cervix show immature squamous metaplasia and chronic cervicitis. The endometrium shows weakly proliferative phase type glands. A partially hyalinized leiomyoma is seen in the myometrium and lacks significant atypia, necrosis, and increased mitoses. The bilateral fallopian tubes show no significant histopathologic alteration. No atypical hyperplasia, dysplasia, or malignancy is identified. SPECIMEN PROCESSING * PROCESSING PERFORMED AT [facility] SURGERY INFORMATION Surgery date 10/05/20 Surgeon(s): DR. MAR Signed SIGNATURE ON FILE Linda Chaparro 10/08/20 1513 END OF REPORT Novel Coronavirus 2019 [id number] 20:12:00 Test Item Value Reference Range Interpretation Comments Novel Coronavirus Negative Negative Positive r esults are 2019 Inhouse (test indicativ e of the presence code = COVNONPUI) ofSARS-CoV -2 RNA, clinical correlation wit h patient historyand othe r diagnostic info rmation is necessary to determinepatien t infection status. Positiv e results do not rule out bacterial infection or co -infection with other viru ses. Negative result s do not preclude SARS-C oV-2 infection andsh ould not be used as the asia e basis for patient managementdecis ions. Negative result s must be combined with otherclinical observations, p atient history, and epidemiological information . Detection of SARS-CoV-2 RNA may be affe cted bysample collec tion methods, storag e conditions, and /or stageof infection. Fransisca l RNA mutations, vacc inations, antiviraltherap eutics, antibiotics, chemotherapeuti c orimmunosuppres rossana drugs have not been e valuated for effectson d etection. Results are for the identification of SARS-CoV-2 RNA usingthe [employer] M2000 Sy stem under the FDA Emergen cy UseAuthorizatio n. The testing is perf ormed by personneltraine d in the procedures for the [employer] molecular diagnostic SARS-CoV-2 assa y in vitro.Positive results are indicative of t he presence [id number] RN A, clinical correlation wit h patient historyand othe r diagnostic info rmation is necessary to determinepatien t infection status. Positiv e results do not rule out bacterial infection or co -infection with other viru ses. Negative result s do not preclude SARS-C oV-2 infection andsh ould not be used as the asia e basis for patient managementdecis ions. Negative result s must be combined with otherclinical observations, p atient history, and epidemiological information . Detection of SARS-CoV-2 RNA may be affe cted bysample collec tion methods, storag e conditions, and /or stageof infection. Vi ral RNA mutations, vacc inations, antiviraltherap eutics, antibiotics, chemotherapeuti c orimmunosuppres rossana drugs have not been e valuated for effectson d etection. Results are for the identification of SARS-CoV-2 RNA usingthe [employer] M2000 Sy stem under the FDA Emergen cy UseAuthorizatio n. The testing is perf ormed by personneltraine d in the procedures for the [employer] molecular diagnostic SARS-CoV-2 assa y in vitro Novel Coronavirus 2018 [id number] 20:11:00 Test Item Value Reference Range Interpretation Comments Novel Coronavirus Negative Negative Positive r esults are 2019 Inhouse (test indicativ e of the presence code = COVNONPUI) ofSARS-CoV -2 RNA, clinical correlation wit h patient historyand othe r diagnostic info rmation is necessary to determinepatien t infection status. Positiv e results do not rule out bacterial infection or co -infection with other viru ses. Negative result s do not preclude SARS-C oV-2 infection andsh ould not be used as the asia e basis for patient managementdecis ions. Negative result s must be combined with otherclinical observations, p atient history, and epidemiological information . Detection of SARS-CoV-2 RNA may be affe cted bysample collec tion methods, storag e conditions, and /or stageof infection. Fransisca l RNA mutations, vacc inations, antiviraltherap eutics, antibiotics, chemotherapeuti c orimmunosuppres rossana drugs have not been e valuated for effectson d etection. Results are for the identification of SARS-CoV-2 RNA usingthe [employer] M2000 Sy stem under the FDA Emergen cy UseAuthorizatio n. The testing is perf ormed by personnelteddy d in the procedures for the [employer] M2000 molecular diagnostic SARS-CoV-2 assa y in vitro. COMPREHENSIVE METABOLIC [id number] 14:20:00 Test Item Value Reference Range Interpretation Comments SODIUM (test code = 133 MMOL/L 133-145 N NA) POTASSIUM (test code = 3.9 MMOL/L 3.6-5.2 N K) CHLORIDE (test code = 98 MMOL/L 100-108 L CL) CARBON DIOXIDE (test 22 MMOL/L 22-32 N code = CO2) GLUCOSE (test code = 83 MG/DL 65-99 N Results of this GLU) assay method ma y be falsely depress ed orelevated if patient is taki ng sulfasalazine. BLOOD UREA NITROGEN 6 MG/DL 6-20 N (test code = BUN) GLOMERULAR FILTRATION 81 64-149 N Report ing units: RATE (test code = GFR) mL/mi n/1.73m\\S\\2 (Modified MDRD Formula) CREATININE (test code 0.79 MG/DL 0.60-1.00 N = CREAT) TOTAL PROTEIN (test 7.9 G/DL 6.4-8.2 N code = PROT) ALBUMIN (test code = 4.2 G/DL 3.4-5.0 N ALB) GLOBULIN (test code = 3.7 G/DL 1.5-3.8 N GLOB) ALBUMIN/GLOBULIN RATIO 1.1 1.1-2.2 N (test code = A/G) CALCIUM (test code = 8.9 MG/DL 8.7-10.5 N CA) BILIRUBIN TOTAL (test 0.3 MG/DL 0.0-1.0 N code = BILT) SGOT/AST (test code = 19 Units/L 15-37 N Result s of this AST) assay method ma y be falsely depress ed orelevated if patient is taki ng sulfasalazine. SGPT/ALT (test code = 24 Units/L 30-65 L Result s of this ALT) assay method ma y be falsely depress ed orelevated if patient is taki ng sulfasalazine. ALKALINE PHOSPHATASE 134 Units/L 50-136 N TOTAL (test code = ALKP) HCG SERUM [id number] 14:12:00 Test Item Value Reference Range Interpretation Comments HCG SERUM QUAL NEGATIVE NEGATIVE False negativ es may occur (test code = when levels of hCGare below HCGQL) 10 mIU/ml. When is still suspec janae, a new specimenshould be obtained after 48 hours and re-tested.If wa iting 48 hours is not me dically advisable,the t est result should be confi rmed using aquantitative h CG assay. CBC W/AUTO [id number] 14:03:00 Test Item Value Reference Range Interpretation Comments WHITE BLOOD CELL (test code = 6.32 x10 3/uL 4.80-10.80 N WBC) RED BLOOD CELL (test code = 3.79 x10 6/uL 4.2-5.4 L RBC) HEMOGLOBIN (test code = HGB) 11.9 G/DL 12.0-16.0 L HEMATOCRIT (test code = HCT) 34.8 % 37-47 L MEAN CELL VOLUME (test code = 91.8 FL 81-99 N MCV) MEAN CELL HGB (test code = MCH) 31.4 PG 27-31 H MEAN CELL HGB CONCENTRATION 34.2 G/DL 33-37 N (test code = MCHC) RED CELL DISTRIBUTION WIDTH 13.5 % 11.5-14.5 N (test code = RDW) PLATELET COUNT (test code = 356 x10 3/uL 150-450 N PLT) MEAN PLATELET VOLUME (test code 9.5 FL 7.4-10.4 N = MPV) NEUTROPHIL % (test code = NT%) 52.6 % 42-86 N IMMATURE GRANULOCYTE % (test 0.3 % 0.0-2.0 N code = IG%) LYMPHOCYTE % (test code = LY%) 36.4 % 24-44 N MONOCYTE % (test code = MO%) 9.0 % 0.0-4.0 H EOSINOPHIL % (test code = EO%) 0.9 % 0.0-2.7 N BASOPHIL % (test code = BA%) 0.8 % 0.0-0.5 H NUCLEATED RBC % (test code = 0.0 % 0.0-0.0 N NRBC%) NEUTROPHIL # (test code = NT#) 3.32 x10 3/uL 1.8-7.7 N IMMATURE GRANULOCYTE # (test 0.02 x10 3/uL 0.00-0.03 N code = IG#) LYMPHOCYTE # (test code = LY#) 2.30 x10 3/uL 1.0-4.8 N MONOCYTE # (test code = MO#) 0.57 x10 3/uL 0.0-0.8 N EOSINOPHIL # (test code = EO#) 0.06 x10 3/uL 0.0-0.5 N BASOPHIL # (test code = BA#) 0.05 x10 3/uL 0.0-0.2 N NUCLEATED RBC # (test code = 0.0 X10 3/uL 0.0-0.2 N NRBC#)
[2021-10-27] MEDS ORDERED: FAMOTIDINE 20 MG/2 ML VIAL IV ONE (09:22)
[2021-10-27] MEDS ORDERED: ONDANSETRON 4 MG/2 ML VIAL ONE (09:22)
[2021-10-27] MEDS ORDERED: NA CHLORIDE 0.9% 1,000 ML ONE (09:22)
[2021-10-27 09:39] LABS: Absolute Lymphocytes (CBC) 0.9 K/uL (0.7-4.9); Hematocrit 37.8 % (36.0-45.0); Lymphocytes % 4.1 % (15.3-44.8); MPV 7.5 fL (7.6-11.3); RBC Red Blood Cell Count 4.34 M/uL (3.86-4.86)
[2021-10-27 09:56] LABS: Albumin 4.6 g/dL (3.4-5.0); Bilirubin Direct 0.1 mg/dL (0-0.2); Bilirubin Total 0.4 mg/dL (0.2-1.0); Potassium 3.7 mmol/L (3.5-5.1); Protein, Total 8.5 g/dL (6.4-8.2)
[2021-10-27] MEDS ORDERED: MORPHINE 4 MG/ML SYR ONE ×2 (10:55→13:33)
[2021-10-27] MEDS ORDERED: CIPROFLOXACIN 400mg IV 400 MG/200 ML BAG IV ONE (10:55)
[2021-10-27] MEDS ORDERED: METRONIDAZOLE 500mg IVPB 500 MG/100 ML BAG IV ONE (10:55)
--- NOTE | 2021-10-27 11:22 | RAD REPORT ---
EXAM DESCRIPTION: CT - Abdomen Pelvis W Contrast - 10/27/2021 11:08 am CLINICAL HISTORY: ABD PAIN COMPARISON: CT study 07/03/2017 TECHNIQUE: Biphasic, helical CT imaging of the abdomen and pelvis was performed following 100 ml non -ionic IV contrast. No oral contrast administered. All CT scans are performed using dose optimization technique as appropriate and may include automated exposure control or mA/KV adjustment according to patient size. FINDINGS: No suspicious findings in the lung bases. The liver, spleen, and pancreas show no suspicious findings. Liver attenuation is borderline to mild fatty infiltrated. Cholecystectomy clips are present. No abnormal biliary tree dilatation. Symmetric renal function is seen with no hydronephrosis or suspicious renal mass. No pyelonephritis o r acute parenchymal process. No bladder abnormalities. No adrenal abnormalities. Uterus is absent. Ov obey are normal size. No adnexal abnormality. No dilated bowel loops or bowel wall thickening. No free air, free fluid or inflammatory stranding. No umbilical hernia or periumbilical abnormality. No abdominal wall muscle abnormality. No mass or b ulky lymphadenopathy. No suspicious bony findings. IMPRESSION: Contrast enhanced CT abdomen and pelvis showing no acute or emergent finding. Nonacute findings detailed in the body of the report.
[2021-10-27] MEDS ORDERED: METOCLOPRAMIDE 10 MG/2mL INJ ONE ×2 (11:42→13:33)
[2021-10-27] MEDS ORDERED: NA CHLORIDE 0.9% 250 ML ONE (11:43)
[2021-10-27] MEDS ORDERED: DIPHENHYDRAMINE 50 MG/ML VIAL ONE ×2 (11:43→13:34)
[2021-10-27] MEDS ORDERED: LORazepam 2 MG/ML VIAL ONE (11:43)
[2021-10-27 13:24] LABS: Anisocytosis SLIGHT; Blood Morphology Comment NOTED (NOT SEEN); Hypochromasia 1+; Platelet Estimate ADEQ
--- NOTE | 2021-10-27 15:59 | ER ---
Nurse's Notes [facility] Name: Kailey Segovia Age: 41 yrs Sex: Female : 1980 Arrival Date: 10/27/2021 Time: 08:42 Bed 7 Private MD: Diagnosis: Abdominal pain, Generalized;Gastroparesis;Irritable bowel syndrome without diarrhea Presentation: 10/27 09:05 Chief complaint: Patient states: has hx of gastroparesis and IBS , was drinking last iw night, has been vomiting since last night. Coronavirus screen: Client presents with at least one sign or symptom that may indicate coronavirus-19. Ebola Screen: Patient negative for fever greater than or equal to 101.5 degrees Fahrenheit, and additional compatible Ebola Virus Disease symptoms Patient denies exposure to infectious person. Patient denies travel to an Ebola-affected area in the 21 days before illness onset. No symptoms or risks identified at this time. Initial Sepsis Screen: Does the patient meet any 2 criteria? No. Patient's initial sepsis screen is negative. Does the patient have a suspected source of infection? No. Patient's initial sepsis screen is negative. Risk Assessment: Do you want to hurt yourself or someone else? Patient reports no desire to harm self or others. Onset of symptoms was October 26, 2021. 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 LMP N/A - Hysterectomy eo2 Historical: - Allergies: 09:07 Phenergan; iw - Home Meds: 09:07 diclofenac sodium 1 % topical gel three times a day [Active]; ondansetron HCl 8 mg Oral iw tab 1 tab 3 times per day [Active]; gabapentin 100 mg oral cap 1 cap 3 times per day [Active]; Vitamin D Oral daily [Active]; buspirone 30 mg Oral tab 1 tab 2 times per day [Active]; Latuda 60 mg oral tab 1 tab once daily [Active]; oxcarbazepine 600 mg oral tab three times a day [Active]; prazosin 5 mg Oral cap daily [Active]; fenofibrate 54 mg oral tab 1 tab once daily [Active]; Belsomra 20 mg oral tab 1 tab nightly [Active]; escitalopram oxalate 10 mg oral tab 1 tab once daily [Active]; levocetirizine 5 mg oral tab 1 tab once daily [Active]; tamsulosin 0.4 mg oral cap 1 cap once daily [Active]; hyoscyamine sulfate 0.125 mg SL subl four times a day [Active]; 09:34 acetaminophen-codeine 300-30 mg Oral tab 1 tab twice a day [Active]; alprazolam 1 mg eo2 Oral TbDL 1 tab 3 times per day [Active]; Zofran (as hydrochloride) 8 mg Oral tab 1 tab every 4 hours [Active]; - PMHx: 09:07 Chronic pain; Depression; Gastroparesis; High Cholesterol; Hyperlipidemia; iw - PSHx: 09:07 hysterectomy; tubal ligation; iw - Immunization history:: Client reports receiving the 2nd dose of the Covid vaccine. - Social history:: Smoking status: Patient uses street drugs, marijuana. Screenin:15 Abuse screen: Denies threats or abuse. Denies injuries from another. Nutritional eo2 screening: No deficits noted. On. Tuberculosis screening: No symptoms or risk factors identified. Fall Risk None identified. Assessment: 09:15 General: Appears uncomfortable, Behavior is cooperative, anxious. Pain: Complains of eo2 pain in abdomen. Neuro: Level of Consciousness is awake, alert, obeys commands, Oriented to person, place, time, situation, Denies dizziness, headache. Cardiovascular: Denies chest pain, shortness of breath, Capillary refill < 3 seconds. Respiratory: Airway is patent Trachea midline Respiratory effort is even, unlabored, Respiratory pattern is regular, hyperventilation Breath sounds are clear bilaterally. Denies shortness of breath. GI: Bowel sounds present X 4 quads. Abdomen is tender to palpation generalized. 09:15 : No deficits noted. No signs and/or symptoms were reported regarding the eo2 genitourinary system. 11:00 Reassessment: Patient is alert, oriented x 3, equal unlabored respirations, skin vg1 warm/dry/pink. General: Appears uncomfortable, Behavior is anxious, crying. Derm: Skin is diaphoretic. 14:41 Reassessment: Pt reports allergy to Reglan, reported reaction: "I shake my head no". eo2 14:42 Reassessment: Dr. Barnhart spoke with pt additional benadryl to be administered before eo2 reglan, pt agreeable agreeable with plan. 18:30 Reassessment: Received order for NS 1000ml bolus once from Dr. Barnhart. eo2 20:09 Reassessment: Report given to MANJU Sharp. st1 Vital Signs: 09:00 BP 141 / 95; Pulse 109; Resp 20; Temp 97.9; Pulse Ox 97% ; Weight 92.99 kg; Height 5 eo2 ft. 5 in. (165.10 cm); Pain 10/10; 10:00 BP 142 / 102; Pulse 80; Resp 22; Pulse Ox 100% ; eo2 11:19 BP 155 / 96; Pulse 108; Resp 21; Pulse Ox 100% ; Pain 9/10; eo2 12:00 Pain 6/10; eo2 12:00 BP 156 / 95; Pulse 107; Resp 19; Pulse Ox 95% ; Pain 6/10; eo2 13:00 BP 134 / 108; Pulse 109; Resp 20; Pulse Ox 95% ; Pain 8/10; eo2 14:00 BP 153 / 95; Pulse 104; Resp 19; Pulse Ox 97% ; eo2 15:00 BP 159 / 94; Pulse 108; Resp 17; Pulse Ox 98% ; Pain 0/10; eo2 16:00 BP 156 / 84; Pulse 109; Resp 19; Pulse Ox 95% on R/A; eo2 17:00 BP 138 / 93; Pulse 106; Resp 19; Pulse Ox 91% on R/A; eo2 18:00 BP 159 / 98; Pulse 103; Resp 17; Pulse Ox 98% on 2 lpm NC; Pain 1/10; eo2 20:10 BP 121 / 82; Pulse 80; Resp 16; Pulse Ox 100% on 2 lpm NC; st1 09:00 Body Mass Index 34.11 (92.99 kg, 165.10 cm) eo2 17:00 Pt to be placed on 2LPM NC eo2 ED Course: 08:42 Patient arrived in ED. mr 08:43 Kieran Barnhart MD is Attending Physician. kdr 09:07 Triage completed. iw 09:13 Arm band placed on. iw 09:15 Patient has correct armband on for positive identification. Pulse ox on. NIBP on. Door eo2 closed. Noise minimized. Warm blanket given. 09:15 No provider procedures requiring assistance completed. Inserted saline lock: 22 gauge eo2 in left hand, using aseptic technique. Blood collected. 09:17 Savannah Hays RN is Primary Nurse. eo2 09:27 Basic Metabolic Panel Sent. eo2 09:27 CBC with Diff Sent. eo2 09:27 Hepatic Function Sent. eo2 09:27 Lipase Sent. eo2 09:27 Basic Metabolic Panel Sent. eo2 11:07 Inserted saline lock: 22 gauge in left forearm, using aseptic technique. iw 11:08 CT Abd/Pelvis - IV Contrast Only In Process Unspecified. EDMS 11:40 Inserted saline lock: 24 gauge in right wrist, using aseptic technique. ,using aseptic vg1 technique. completed by Savannah NUNES. 15:58 Clrai Thurman MD is Hospitalizing Provider. kdr 16:52 SARS-COV-2 RT PCR (Document "Date of Onset" if Symptomatic) Sent. iw 16:55 Urine Microscopic Only Sent. eo2 16:55 Urine Microscopic Only Sent. eo2 19:35 IV discontinued, intact, bleeding controlled, No redness/swelling at site. Pressure st1 dressing applied. Administered Medications: 09:27 Drug: Zofran (Ondansetron) 4 mg Route: IVP; Site: left hand; eo2 10:27 Follow up: Response: No adverse reaction; Nausea is decreased eo2 09:27 Drug: NS 0.9% 1000 ml Route: IV; Rate: 1 bolus; Site: left hand; eo2 10:30 Follow up: Response: No adverse reaction; IV Status: Completed infusion; IV Intake: eo2 1000ml 09:27 Drug: Pepcid (famotidine) 20 mg Route: IVP; Site: left hand; eo2 10:27 Follow up: Response: No adverse reaction eo2 11:00 Drug: morphine 4 mg Route: IVP; Site: right forearm; vg1 12:00 Follow up: Pain 6/10 Adult; Response: No adverse reaction; Pain is decreased eo2 11:40 Drug: Flagyl (metroNIDAZOLE) 500 mg Volume: 100 ml; Route: IVPB; Rate: 200 ml/hr; vg1 Infused Over: 30 mins; Site: right wrist; 12:17 Follow up: IV Status: Completed infusion; IV Intake: 100ml vg1 11:48 Drug: Benadryl (diphenhydrAMINE) 12.5 mg {Note: Flagyl paused for administration of vg1 Benadryl 12.5 mg IVP.} Route: IVP; Site: right wrist; 12:50 Follow up: Response: No adverse reaction eo2 11:50 Drug: Ativan (LORazepam) 1 mg {Note: Flagyl paused for administration of Ativan 1 mg vg1 IVP.} Route: IVP; Site: right wrist; 12:50 Follow up: Response: No adverse reaction eo2 11:53 Not Given (Patient Refused): Reglan (metoCLOPramide) 20 mg IVP once; over 15 mins - vg1 place in 250 cc ns 12:17 Drug: Cipro (ciprofloxacin) 400 mg Volume: 200 ml; Route: IVPB; Infused Over: 60 mins; vg1 Site: right wrist; 13:17 Follow up: Response: No adverse reaction; IV Status: Completed infusion; IV Intake: eo2 200ml 13:34 Drug: Benadryl (diphenhydrAMINE) 12.5 mg Route: IVP; Site: right wrist; eo2 14:48 Follow up: Response: No adverse reaction eo2 13:36 Drug: morphine 4 mg Route: IVP; Site: right wrist; eo2 14:36 Follow up: Response: No adverse reaction; Pain is decreased eo2 13:38 Drug: Reglan (metoCLOPramide) 20 mg Route: IVP; Site: right wrist; eo2 14:30 Follow up: Response: No adverse reaction; Pain is decreased eo2 18:45 Drug: NS 0.9% 1000 ml Route: IV; Rate: 1000 ml; Site: right wrist; eo2 Intake: 10:30 IV: 1000ml; Total: 1000ml. eo2 12:17 IV: 100ml; Total: 1100ml. vg1 13:17 IV: 200ml; Total: 1300ml. eo2 Outcome: 15:59 Decision to Hospitalize by Provider. kdr 19:34 Discharged to home with family. st1 19:34 Condition: good 19:34 Discharge instructions given to patient, Instructed on discharge instructions, follow up and referral plans. medication usage, Demonstrated understanding of instructions, follow-up care, medications, Prescriptions given X 5 20:40 Patient left the ED. st1 Signatures: Dispatcher [employer] EDMS Kieran Barnhart MD MD kdr Rivera, Mary mr Williams, Irene, RN RN iw Garcia, Victoria, RN RN vg1 Savannah Hays RN RN eo2 Ariana Tompkins, RN RN st1 Corrections: (The following items were deleted from the chart) 09:35 09:07 Home Meds: alprazolam 1 mg Oral tab 1 tab 3 times per day; iw eo2 16:56 16:55 COVID 19 CPL+MRANA.[email or web address] drawn and sent. eo2 EDMS 18:46 18:00 BP 159 / 98; Pulse 103bpm; Resp 17bpm; Pulse Ox 98%; eo2 eo2
--- NOTE | 2021-10-27 16:00 | EDPHYS ---
Physician Documentation [facility] Name: Kailey Segovia Age: 41 yrs Sex: Female : 1980 Arrival Date: 10/27/2021 Time: 08:42 Bed 7 Private MD: ED Physician Kieran Barnhart HPI: 10/27 09:27 This 41 yrs old Female presents to ER via Ambulatory with complaints of kdr Abdominal Pain, Vomiting. 09:27 The patient presents to the emergency department with nausea, that is mild, vomiting, kdr that is intermittent, abdominal pain, of the epigastric area, right upper quadrant and left upper quadrant. Onset: The symptoms/episode began/occurred suddenly, last night. Possible causes: flare up of bowel problem, irritable bowel disease, Alcohol induced. The symptoms are aggravated by food , alcohol, The symptoms are alleviated by nothing. Associated signs and symptoms: Pertinent positives: abdominal pain, nausea, vomiting, Pertinent negatives: belching, constipation, diarrhea, dysuria, fever, GI bleeding, hematuria, vaginal discharge. Severity of symptoms: At their worst the symptoms were moderate severe incapacitating just prior to arrival, in the emergency department the symptoms are unchanged. The patient has experienced similar episodes in the past, with the last episode occurring A few weeks ago. The patient has not recently seen a physician. Patient states that she was drinking alcohol yesterday and that this in the past has occasionally resulted in a flareup of her bowel problem. 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 LMP N/A - Hysterectomy eo2 Historical: - Allergies: 09:07 Phenergan; iw - Home Meds: 09:07 diclofenac sodium 1 % topical gel three times a day [Active]; ondansetron HCl 8 mg Oral iw tab 1 tab 3 times per day [Active]; gabapentin 100 mg oral cap 1 cap 3 times per day [Active]; Vitamin D Oral daily [Active]; buspirone 30 mg Oral tab 1 tab 2 times per day [Active]; Latuda 60 mg oral tab 1 tab once daily [Active]; oxcarbazepine 600 mg oral tab three times a day [Active]; prazosin 5 mg Oral cap daily [Active]; fenofibrate 54 mg oral tab 1 tab once daily [Active]; Belsomra 20 mg oral tab 1 tab nightly [Active]; escitalopram oxalate 10 mg oral tab 1 tab once daily [Active]; levocetirizine 5 mg oral tab 1 tab once daily [Active]; tamsulosin 0.4 mg oral cap 1 cap once daily [Active]; hyoscyamine sulfate 0.125 mg SL subl four times a day [Active]; 09:34 acetaminophen-codeine 300-30 mg Oral tab 1 tab twice a day [Active]; alprazolam 1 mg eo2 Oral TbDL 1 tab 3 times per day [Active]; Zofran (as hydrochloride) 8 mg Oral tab 1 tab every 4 hours [Active]; - PMHx: 09:07 Chronic pain; Depression; Gastroparesis; High Cholesterol; Hyperlipidemia; iw - PSHx: 09:07 hysterectomy; tubal ligation; iw - Immunization history:: Client reports receiving the 2nd dose of the Covid vaccine. - Social history:: Smoking status: Patient uses street drugs, marijuana. ROS: 09:27 Constitutional: Negative for fever, chills, and weight loss, Eyes: Negative for injury, kdr pain, redness, and discharge, ENT: Negative for injury, pain, and discharge, Neck: Negative for injury, pain, and swelling, Cardiovascular: Negative for chest pain, palpitations, and edema, Respiratory: Negative for shortness of breath, cough, wheezing, and pleuritic chest pain, Back: Negative for injury and pain, : Negative for injury, bleeding, discharge, and swelling, MS/Extremity: Negative for injury and deformity, Skin: Negative for injury, rash, and discoloration, Neuro: Negative for headache, weakness, numbness, tingling, and seizure activity. Psych: Negative for depression, anxiety, suicide ideation, homicidal ideation, and hallucinations, Allergy/Immunology: Negative for hives, rash, and allergies, Endocrine: Negative for neck swelling, polydipsia, polyuria, polyphagia, and marked weight changes, Hematologic/Lymphatic: Negative for swollen nodes, abnormal bleeding, and unusual bruising. 09:27 Abdomen/GI: Positive for abdominal pain, nausea and vomiting, Negative for constipation, abdominal distension, dysphagia, hematemesis, black/tarry stool, rectal pain, rectal bleeding, bowel incontinence. Exam: 09:27 Constitutional: This is a well developed, well nourished patient who is awake, alert, kdr and in no acute distress. Head/Face: Normocephalic, atraumatic. Eyes: Pupils equal round and reactive to light, extra-ocular motions intact. Lids and lashes normal. Conjunctiva and sclera are non-icteric and not injected. Cornea within normal limits. Periorbital areas with no swelling, redness, or edema. Neck: Trachea midline, no thyromegaly or masses palpated, and no cervical lymphadenopathy. Supple, full range of motion without nuchal rigidity, or vertebral point tenderness. No Meningismus. Chest/axilla: Normal chest wall appearance and motion. Nontender with no deformity. No lesions are appreciated. Cardiovascular: Regular rate and rhythm with a normal S1 and S2. No gallops, murmurs, or rubs. Normal PMI, no JVD. No pulse deficits. Respiratory: Lungs have equal breath sounds bilaterally, clear to auscultation and percussion. No rales, rhonchi or wheezes noted. No increased work of breathing, no retractions or nasal flaring. Back: No spinal tenderness. No costovertebral tenderness. Full range of motion. MS/ Extremity: Pulses equal, no cyanosis. Neurovascular intact. Full, normal range of motion. Neuro: Awake and alert, GCS 15, oriented to person, place, time, and situation. Cranial nerves II-XII grossly intact. Motor strength 5/5 in all extremities. Sensory grossly intact. Cerebellar exam normal. Normal gait. Psych: Awake, alert, with orientation to person, place and time. Behavior, mood, and affect are within normal limits. 09:27 Abdomen/GI: Inspection: obese Bowel sounds: diminished, absent, in all quadrants, Palpation: soft, mild abdominal tenderness, moderate abdominal tenderness, in the epigastric area, right upper quadrant and right lower quadrant. Vital Signs: 09:00 BP 141 / 95; Pulse 109; Resp 20; Temp 97.9; Pulse Ox 97% ; Weight 92.99 kg; Height 5 eo2 ft. 5 in. (165.10 cm); Pain 10/10; 10:00 BP 142 / 102; Pulse 80; Resp 22; Pulse Ox 100% ; eo2 11:19 BP 155 / 96; Pulse 108; Resp 21; Pulse Ox 100% ; Pain 9/10; eo2 12:00 Pain 6/10; eo2 12:00 BP 156 / 95; Pulse 107; Resp 19; Pulse Ox 95% ; Pain 6/10; eo2 13:00 BP 134 / 108; Pulse 109; Resp 20; Pulse Ox 95% ; Pain 8/10; eo2 14:00 BP 153 / 95; Pulse 104; Resp 19; Pulse Ox 97% ; eo2 15:00 BP 159 / 94; Pulse 108; Resp 17; Pulse Ox 98% ; Pain 0/10; eo2 16:00 BP 156 / 84; Pulse 109; Resp 19; Pulse Ox 95% on R/A; eo2 17:00 BP 138 / 93; Pulse 106; Resp 19; Pulse Ox 91% on R/A; eo2 18:00 BP 159 / 98; Pulse 103; Resp 17; Pulse Ox 98% on 2 lpm NC; Pain 1/10; eo2 20:10 BP 121 / 82; Pulse 80; Resp 16; Pulse Ox 100% on 2 lpm NC; st1 09:00 Body Mass Index 34.11 (92.99 kg, 165.10 cm) eo2 17:00 Pt to be placed on 2LPM NC eo2 MDM: 09:27 Data reviewed: vital signs, nurses notes, lab test result(s), radiologic studies. kdr Counseling: I had a detailed discussion with the patient and/or guardian regarding: the historical points, exam findings, and any diagnostic results supporting the discharge/admit diagnosis, lab results, radiology results. 15:59 Patient medically screened. [facility] 10/27 08:44 Order name: Basic Metabolic Panel [facility] 10/27 08:44 Order name: CBC with Diff; Complete Time: 14:10 [facility] 10/27 08:44 Order name: Hepatic Function; Complete Time: 10:05 [facility] 10/27 08:44 Order name: Lipase; Complete Time: 10:05 [facility] 10/27 08:44 Order name: Basic Metabolic Panel; Complete Time: 10:05 EDAL 10/27 13:23 Order name: Manual Differential; Complete Time: 14:10 EDAL 10/27 16:25 Order name: Urine Microscopic Only eo2 10/27 16:25 Order name: Urine Microscopic Only EDAL 10/27 16:34 Order name: Urine Dipstick-Ancillary EDAL 10/27 16:48 Order name: SARS-COV-2 RT PCR (Document "Date of Onset" if Symptomatic) 10/27 18:08 Order name: Comprehensive Metabolic Panel EDAL 10/27 18:08 Order name: Comprehensive Metabolic Panel EDMS 10/27 10:12 Order name: CT Abd/Pelvis - IV Contrast Only; Complete Time: 11:58 kdr 10/27 18:08 Order name: CBC with Automated Diff EDMS 10/27 18:08 Order name: CBC with Automated Diff EDMS 10/27 08:44 Order name: IV Saline Lock; Complete Time: 09:27 kdr 10/27 08:44 Order name: Labs collected and sent; Complete Time: 09:27 kdr 10/27 16:25 Order name: Urine Dipstick-Ancillary (obtain specimen); Complete Time: 16:55 eo2 10/27 18:08 Order name: NPO EDMS Administered Medications: 09:27 Drug: Zofran (Ondansetron) 4 mg Route: IVP; Site: left hand; eo2 10:27 Follow up: Response: No adverse reaction; Nausea is decreased eo2 09:27 Drug: NS 0.9% 1000 ml Route: IV; Rate: 1 bolus; Site: left hand; eo2 10:30 Follow up: Response: No adverse reaction; IV Status: Completed infusion; IV Intake: eo2 1000ml 09:27 Drug: Pepcid (famotidine) 20 mg Route: IVP; Site: left hand; eo2 10:27 Follow up: Response: No adverse reaction eo2 11:00 Drug: morphine 4 mg Route: IVP; Site: right forearm; vg1 12:00 Follow up: Pain 6/10 Adult; Response: No adverse reaction; Pain is decreased eo2 11:40 Drug: Flagyl (metroNIDAZOLE) 500 mg Volume: 100 ml; Route: IVPB; Rate: 200 ml/hr; vg1 Infused Over: 30 mins; Site: right wrist; 12:17 Follow up: IV Status: Completed infusion; IV Intake: 100ml vg1 11:48 Drug: Benadryl (diphenhydrAMINE) 12.5 mg {Note: Flagyl paused for administration of vg1 Benadryl 12.5 mg IVP.} Route: IVP; Site: right wrist; 12:50 Follow up: Response: No adverse reaction eo2 11:50 Drug: Ativan (LORazepam) 1 mg {Note: Flagyl paused for administration of Ativan 1 mg vg1 IVP.} Route: IVP; Site: right wrist; 12:50 Follow up: Response: No adverse reaction eo2 11:53 Not Given (Patient Refused): Reglan (metoCLOPramide) 20 mg IVP once; over 15 mins - vg1 place in 250 cc ns 12:17 Drug: Cipro (ciprofloxacin) 400 mg Volume: 200 ml; Route: IVPB; Infused Over: 60 mins; vg1 Site: right wrist; 13:17 Follow up: Response: No adverse reaction; IV Status: Completed infusion; IV Intake: eo2 200ml 13:34 Drug: Benadryl (diphenhydrAMINE) 12.5 mg Route: IVP; Site: right wrist; eo2 14:48 Follow up: Response: No adverse reaction eo2 13:36 Drug: morphine 4 mg Route: IVP; Site: right wrist; eo2 14:36 Follow up: Response: No adverse reaction; Pain is decreased eo2 13:38 Drug: Reglan (metoCLOPramide) 20 mg Route: IVP; Site: right wrist; eo2 14:30 Follow up: Response: No adverse reaction; Pain is decreased eo2 18:45 Drug: NS 0.9% 1000 ml Route: IV; Rate: 1000 ml; Site: right wrist; eo2 Disposition Summary: 10/27/21 15:59 Hospitalization Ordered Hospitalization Status: Observation kdr Provider: Clari Thurman Location: Telemetry/MedSurg (observation) kdr Condition: Fair kdr Problem: new kdr Symptoms: have improved kdr Bed/Room Type: Standard [facility] Room Assignment: 203(10/27/21 18:53) dw Diagnosis - Abdominal pain, Generalized kdr - Gastroparesis kdr - Irritable bowel syndrome without diarrhea kdr Forms: - Medication Reconciliation Form kdr - SBAR form kdr Signatures: Dispatcher [employer] EDRosalba Torres RN RN dw Kieran Barnhart MD MD kdr Cynthia Izaguirre RN RN iw Ita Foster RN RN vg1 Savannah Hays RN RN eo2 Corrections: (The following items were deleted from the chart) 09:35 09:07 Home Meds: alprazolam 1 mg Oral tab 1 tab 3 times per day; iw eo2 16:56 16:30 COVID 19 CPL+[id number].LAB.BRZ ordered. EDAL EDMS 18:53 15:59 kdr dw
[2021-10-27 16:34] LABS: Urine Blood Negative (Negative); Urine Glucose Negative (Negative); Urine Protein 1+ (Negative)
[2021-10-27 17:00] LABS: Urine Bacteria <20 /HPF (<20); Urine RBC <5 /HPF (NONE SEEN)
[2021-10-27] MEDS ORDERED: ACETAMINOPHEN 500 MG TAB PO PRN (18:06)
[2021-10-27] MEDS ORDERED: LORazepam 2 MG/ML VIAL IV PRN (18:06)
[2021-10-27] MEDS ORDERED: TEMAZEPAM 15 MG CAP PO PRN (20:18)
--- NOTE | 2021-10-27 20:23 | P.HP ---
Certification for Inpatient Patient admitted to: Observation With expected LOS: <2 Midnights Patient will require the following post-hospital care: None Practitioner: I am a practitioner with admitting privileges, knowledge of patient current condition, hospital course, and medical plan of care. Services: Services provided to patient in accordance with Admission requirements found in Title 42 Section 412.3 of the Code of Federal Regulations Patient History Date of Service: 10/27/21 Reason for admission: Intractable nausea and vomiting History of Present Illness: Patient is a 41yo who was admitted to the hospital with intractable and nausea. Patient with a h/o of cyclical vomiting syndrome. She was diagnosed at the age of 21. She states that she was not able to take any medication to help her. She started smoking cannabis. She started doing much better. Since that time she has used marijuana to treat her cyclical vomiting syndrome and she does pretty well as long as she has not available. She is from [place]. She did not have any marijuana on the trip so she was not able to use anything over the last few days. She was having persistent nausea and vomiting. Since she was not able to drive home to [place] she decided to come into the emergency room for further evaluation. She has been given medication and she is doing better. Anticipate discharge in a.m. as long she is tolerating some diet. Allergies promethazine [From Phenergan] Allergy (Verified 10/27/21 21:05) Nausea/Vomiting metoclopramide [From Reglan] Adverse Reaction (Verified 10/27/21 21:05) Nausea/Vomiting Home Medications: ALPRAZolam [Alprazolam] 1 mg PO TID 10/27/21 Atorvastatin Calcium [Lipitor] 40 mg PO BEDTIME 10/27/21 Buspirone HCl [Buspar] 30 mg PO BID 10/27/21 Escitalopram Oxalate [Lexapro] 10 mg PO DAILY 10/27/21 Fenofibrate 50 mg PO BEDTIME 10/27/21 Gabapentin [Neurontin*] 100 mg PO TID 10/27/21 Hyoscyamine Sulfate [Levsin TAB*] 0.125 mg PO Q4H 10/27/21 Levocetirizine Dihydrochloride [Allergy Relief] 5 mg PO DAILY 10/27/21 Lurasidone HCl [Latuda] 60 mg PO BEDTIME 10/27/21 OXcarbazepine [Oxcarbazepine] 600 mg PO TID 10/27/21 Pantoprazole [Protonix Tab*] 40 mg PO DAILY 10/27/21 Prazosin HCl 5 mg PO DAILY 10/27/21 Suvorexant [Belsomra] 20 mg PO BEDTIME 10/27/21 Tamsulosin [Flomax*] 0.4 mg PO BEDTIME 10/27/21 buPROPion HCL [Bupropion Xl] 300 mg PO DAILY 10/27/21 ondansetron HCL [Ondansetron HCl] 8 mg PO TID 10/27/21 - Past Medical/Surgical History -: Cyclical vomiting syndrome -: Endoscopic procedures - Family History Father Family History: Reviewed- Non-Contributory - Social History Smoking Status: Current every day smoker Alcohol use: Yes CD- Drugs: Yes Review of Systems 10-point ROS is otherwise unremarkable Physical Examination - Vital Signs Temperature: 98 F Blood Pressure: 140/80 Pulse: 88 Respirations: 18 Pulse Ox (%): 98 - Physical Exam General: Alert, In no apparent distress, Oriented x3 HEENT: Atraumatic, PERRLA, Mucous membr. moist/pink, EOMI, Sclerae nonicteric Neck: Supple, 2+ carotid pulse no bruit, No LAD, Without JVD or thyroid abnormality Respiratory: Clear to auscultation bilaterally, Normal air movement Cardiovascular: Regular rate/rhythm, Normal S1 S2, No murmurs Gastrointestinal: Normal bowel sounds, Soft and benign, Non-distended, No tenderness, No rebound, No guarding Musculoskeletal: No tenderness Integumentary: No rashes Neurological: Normal gait, Normal speech, Normal strength at 5/5 x4 extr, Normal tone, Sensation intact, Cranial nerves 3-12 intact, Normal affect Lymphatics: No axilla or inguinal lymphadenopathy - Studies Laboratory Data (last 24 hrs) 10/27/21 09:15: WBC 23.00 H*, Hgb 12.6, Hct 37.8, Plt Count 397 10/27/21 09:15: Sodium 136, Potassium 3.7, BUN 10, Creatinine 0.83, Glucose 145 H, Total Bilirubin 0.4, AST 34, ALT 52, Alkaline Phosphatase 146 H, Lipase 92 Assessment & Plan - Problems (Diagnosis) (1) Cyclical vomiting syndrome Current Visit: Yes Status: Acute (2) History of marijuana use Current Visit: Yes Status: Acute - Plan Plan: 1. IV fluids 2. Anti emetics 3. Monitor labs including CBC; leukocytosis most likely reactive 4. plan of discharge in a.m. 5. GI and DVT prophylaxis Discharge Plan: Home Plan to discharge in: 24 Hours - Advance Directives Does patient have a Living Will: No Does patient have a Durable POA for Healthcare: No - Code Status/Comfort Care Code Status Assessed: Yes Code Status: Full Code Critical Care: No Time Spent Managing PTS Care (In Minutes): 45
[2021-10-27] MEDS: HYDROCORTISONE SUC 100 MG INJ IV SCH ×2 (21:00→21:15)
[2021-10-27 21:06] VITALS: BMI 32.9
[2021-10-27] MEDS: NA CHLORIDE 0.9% 1,000 ML IV SCH (21:15)
[2021-10-27] MEDS: ONDANSETRON 4 MG/2 ML VIAL IV PRN (21:16)
[2021-10-27] MEDS: MORPHINE 2 MG/ML SYR IV PRN (21:16)
[2021-10-27 23:04] VITALS: O2SAT 98
[2021-10-28] MEDS: MORPHINE 2 MG/ML SYR IV PRN ×3 (01:04→09:01)
[2021-10-28] MEDS: ONDANSETRON 4 MG/2 ML VIAL IV PRN ×2 (01:04→04:55)
[2021-10-28] MEDS: HYOSCYAMINE SULF 0.125 MG TAB PO SCH ×4 (02:00→13:33)
[2021-10-28] MEDS: NA CHLORIDE 0.9% 1,000 ML IV SCH ×2 (05:00→06:32)
--- NOTE | 2021-10-28 06:05 | P.PN ---
Date of Service: 10/28/21
[2021-10-28 06:07] LABS: Absolute Lymphocytes (CBC) 1.6 K/uL (0.7-4.9); Hematocrit 30.9 % (36.0-45.0); Lymphocytes % 9.6 % (15.3-44.8); MPV 7.5 fL (7.6-11.3); RBC Red Blood Cell Count 3.46 M/uL (3.86-4.86)
[2021-10-28 06:26] LABS: ALT/SGPT 35 U/L (12-78); AST/SGOT 37 U/L (15-37); Albumin 3.4 g/dL (3.4-5.0); Alkaline Phosphatase 98 U/L (45-117); BUN Blood Urea Nitrogen 10 mg/dL (7-18); Bicarbonate 24 mmol/L (21-32); Bilirubin Total 0.5 mg/dL (0.2-1.0); Glucose Level 109 mg/dL (74-106); Magnesium 2.2 mg/dL (1.8-2.4); Phosphorus 2.8 mg/dL (2.5-4.9); Potassium 3.3 mmol/L (3.5-5.1); Protein, Total 6.8 g/dL (6.4-8.2); Sodium Level 141 mmol/L (136-145)
[2021-10-28] MEDS: OXcarbazepine 150 MG TAB PO SCH ×2 (08:57→13:37)
[2021-10-28] MEDS: ALPRAZOLAM 1 MG TABLET PO SCH ×2 (08:57→13:33)
[2021-10-28] MEDS: GABAPENTIN 100 MG CAP PO SCH ×2 (08:59→13:33)
[2021-10-28] MEDS: ONDANSETRON 4 MG (ODT) TAB PO SCH ×2 (09:00→13:33)
[2021-10-28] MEDS ORDERED: CIPROFLOXACIN 400mg IV 400 MG/200 ML BAG IV SCH (09:00)
[2021-10-28] MEDS ORDERED: PANTOPRAZOLE 40MG TABLET PO SCH (09:00)
[2021-10-28] MEDS ORDERED: BUPROPION HCL XL 150 MG TAB PO SCH (09:00)
[2021-10-28] MEDS ORDERED: LORATADINE 10 MG TAB PO SCH (09:00)
[2021-10-28] MEDS ORDERED: HOME MED 1 EA UNK (Bupropion Hcl [Bupropion Xl] 300 MG Tab.Er.24h) PO SCH (09:00)
[2021-10-28] MEDS ORDERED: BUSPIRONE HCL 15 MG TABLET PO SCH (09:00)
[2021-10-28] MEDS ORDERED: HYDROCORTISONE SUC 100 MG INJ IV SCH (09:00)
[2021-10-28] MEDS ORDERED: PRAZOSIN HCL 1 MG CAP PO SCH (09:00)
[2021-10-28] MEDS ORDERED: METRONIDAZOLE 500mg IVPB 500 MG/100 ML BAG IV SCH (09:00)
[2021-10-28] MEDS ORDERED: ESCITALOPRAM 20 MG TAB PO SCH (09:00)
[2021-10-28 12:59] VITALS: BP 129/61; TEMP 98.2
--- NOTE | 2021-10-28 13:26 | P.DS ---
Admission Date: 10/27/21 Discharge Date: 10/28/21 Disposition: ROUTINE DISCHARGE Discharge Condition: GOOD Reason for Admission: Intractable nausea and vomiting Procedures: Problem list Acute gastroenteritis Cyclical vomiting syndrome Marijuana use Brief History of Present Illness: 41yo who was admitted to the hospital with intractable and nausea. Patient with a h/o of cyclical vomiting syndrome. She was diagnosed at the age of 21. She states that she was not able to take any medication to help her. She started smoking cannabis. She started doing much better. Since that time she has used marijuana to treat her cyclical vomiting syndrome and she does pretty well as long as she has not available. She is from [place]. She did not have any marijuana on the trip so she was not able to use anything over the last few days. She was having persistent nausea and vomiting. Since she was not able to drive home to [place] she decided to come into the emergency room for further evaluation. She has been given medication and she is doing better. Hospital Course: Patient's symptoms improved with IV antibiotics, nausea medication, and IV fluid. CT abd/pelvis was negative for any acute process. White blood cell count, CRP, and procalcitonin were elevated concerning for inflammatory vs infectious process. Patient improved and was tolerated clear liquids on day of discharge without any nausea or pain. Discharged home with 7 more days of antibiotics. Continue home nausea and other chronic medications as previously prescribed. Vital Signs/Physical Exam: Temp Pulse Resp BP Pulse Ox 98.2 F 115 H 20 129/61 99 10/28/21 12:00 10/28/21 12:00 10/28/21 12:00 10/28/21 12:00 10/28/21 12:00 General: Alert, In no apparent distress, Oriented x3 HEENT: Sclerae nonicteric Respiratory: Clear to auscultation bilaterally, Normal air movement Cardiovascular: No edema, Regular rate/rhythm Gastrointestinal: Soft and benign, Non-distended, No tenderness Musculoskeletal: No tenderness Integumentary: No breakdown, No significant lesion Neurological: Normal speech, Normal affect Laboratory Data at Discharge: WBC 17.10 K/uL (4.3-10.9) H D 10/28/21 05:35 Hgb 10.2 g/dL (12.0-15.0) L 10/28/21 05:35 Hct 30.9 % (36.0-45.0) L D 10/28/21 05:35 Plt Count 277 K/uL (152-406) D 10/28/21 05:35 Sodium 141 mmol/L (136-145) 10/28/21 03:53 Potassium 3.3 mmol/L (3.5-5.1) L 10/28/21 03:53 BUN 10 mg/dL (7-18) 10/28/21 03:53 Creatinine 0.56 mg/dL (0.55-1.3) 10/28/21 03:53 Glucose 109 mg/dL (74-106) H 10/28/21 03:53 Phosphorus 2.8 mg/dL (2.5-4.9) 10/28/21 03:53 Magnesium 2.2 mg/dL (1.8-2.4) 10/28/21 03:53 Total Bilirubin 0.5 mg/dL (0.2-1.0) 10/28/21 03:53 AST 37 U/L (15-37) 10/28/21 03:53 ALT 35 U/L (12-78) 10/28/21 03:53 Alkaline Phosphatase 98 U/L (45-117) 10/28/21 03:53 Lipase 92 U/L (73-393) 10/27/21 09:15 Home Medications: ALPRAZolam [Alprazolam] 1 mg PO TID 10/27/21 Atorvastatin Calcium [Lipitor] 40 mg PO BEDTIME 10/27/21 Buspirone HCl [Buspar] 30 mg PO BID 10/27/21 Escitalopram Oxalate [Lexapro] 10 mg PO DAILY 10/27/21 Fenofibrate 50 mg PO BEDTIME 10/27/21 Gabapentin [Neurontin*] 100 mg PO TID 10/27/21 Hyoscyamine Sulfate [Levsin TAB*] 0.125 mg PO Q4H 10/27/21 Levocetirizine Dihydrochloride [Allergy Relief] 5 mg PO DAILY 10/27/21 Lurasidone HCl [Latuda] 60 mg PO BEDTIME 10/27/21 OXcarbazepine [Oxcarbazepine] 600 mg PO TID 10/27/21 Pantoprazole [Protonix Tab*] 40 mg PO DAILY 10/27/21 Prazosin HCl 5 mg PO DAILY 10/27/21 Suvorexant [Belsomra] 20 mg PO BEDTIME 10/27/21 Tamsulosin [Flomax*] 0.4 mg PO BEDTIME 10/27/21 buPROPion HCL [Bupropion Xl] 300 mg PO DAILY 10/27/21 ondansetron HCL [Ondansetron HCl] 8 mg PO TID 10/27/21 Ciprofloxacin HCl [Cipro 500 MG Tablet] 500 mg PO BID 7 Days #14 tab 10/28/21 metroNIDAZOLE [Flagyl] 500 mg PO Q8H 7 Days #21 tablet 10/28/21 New Medications: Ciprofloxacin HCl [Cipro 500 MG Tablet] 500 mg PO BID 7 Days #14 tab metroNIDAZOLE [Flagyl] 500 mg PO Q8H 7 Days #21 tablet Physician Discharge Instructions: Patient's symptoms improved with IV antibiotics, nausea medication, and IV fluid. CT abd/pelvis was negative for any acute process. White blood cell count, CRP, and procalcitonin were elevated concerning for inflammatory vs infectious proc ess. Patient improved and was tolerated clear liquids on day of discharge without any nausea or pain. Discharged home with 7 more days of antibiotics. Continue home nausea and other chronic medications as previously prescribed. FOLLOW-UP WITH PRIMARY CARE PROVIDER IN 1-2 WEEKS FOLLOW-UP WITH Debate Director IN 1-2 WEEKS RETURN TO THE ER IF symptoms worsen CALL or TEXT DR. HOPE AT [phone] IF ANY QUESTIONS REGARDING HOSPITAL STAY. PLEASE CALL THE FLOOR AT [phone] IF ANY MEDICATION OR NURSING QUESTIONS. Diet: Regular Activity: Fall precautions Followup: OOT,OOT [Primary Care Provider] - Time spent managing pt's care (in minutes): 45
[2021-10-28] MEDS ORDERED: HOME MED 1 EA UNK (Suvorexant [Belsomra] 20 MG Tablet) PO SCH (21:00)
[2021-10-28] MEDS ORDERED: HOME MED 1 EA UNK (Fenofibrate [Fenofibrate] 50 MG Capsule) PO SCH (21:00)
[2021-10-28] MEDS ORDERED: HOME MED 1 EA UNK (Lurasidone Hcl [Latuda] 60 MG Tablet) PO SCH (21:00)
[2021-10-28] MEDS ORDERED: ATORVASTATIN 40 MG TAB PO SCH (21:00)
[2021-10-28] MEDS ORDERED: TAMSULOSIN 0.4 MG SR CAP PO SCH (21:00)
== END 2021-10-28 14:38 | disposition home or self-care (01) ==
LOC: ER 08:39 → ERHOLD 18:06 → 2ND 20:36
PROVIDERS: ADMIT Hospitalist; ATTEND Hospitalist
DX: K52.9 Noninfective gastroenteritis and colitis, unspecified (principal); R11.15 Cyclical vomiting syndrome unrelated to migraine; F12.90 Cannabis use, unspecified, uncomplicated; E78.5 Hyperlipidemia, unspecified; E78.00 Pure hypercholesterolemia, unspecified; K31.84 Gastroparesis; G89.29 Other chronic pain; F32.A Depression, unspecified; Z20.822 Contact with and (suspected) exposure to COVID-19; Z88.8 Allergy status to other drugs, medicaments and biological substances; Z90.710 Acquired absence of both cervix and uterus
CPT/HCPCS: 85025 ×2; 80048; 36415; 83735; 84100; 80076; 83690; 80053; 84145; 86140; 74177; 99284; U0003; Q9967; J2765; J1200 ×2; J2270 ×4; J7050; J7030 ×4; J1720 ×2; J2405 ×4; J0744 ×2; G0378 ×3; 81003; 81015